=== PATIENT | female | born 1945 | race Caucasian/White ===

== ENCOUNTER → 2016-04-19 | Outpatient (CLI) | payer OTHER, MEDICARE | LOC: MMPC 10:00 | PROVIDERS: ATTEND Orthopaedic Surgery | DX: M17.12 Unilateral primary osteoarthritis, left knee (principal) | CPT/HCPCS: 20610 ×2; 99213; G0463; J0702; J7325 ==

== ENCOUNTER → 2016-05-31 | Outpatient (CLI) | payer OTHER, MEDICARE ==
--- NOTE | 2016-05-31 11:42 | DI ---
LEFT KNEE, 05/31/2016 10:42 AM: Clinical History: Arthritis of the left knee. Previous Exam: 10/24/2015. 3 views are submitted. Included are an AP weightbearing view and an AP supine film with valgus stress . There is no acute soft tissue, osseous, or joint abnormality. On the weight-bearing view, there is almost complete obliteration of the joint space. With stress, the joint space distance medially is no rmal indicating there is no laxity of the MCL. Reading: Degenerative arthritis of the medial compartment. Stress views show an intact MCL.
== END ==
LOC: ORTHO 11:09
PROVIDERS: ATTEND Orthopaedic Surgery
DX: M17.12 Unilateral primary osteoarthritis, left knee (principal)
CPT/HCPCS: 73562

== ENCOUNTER → 2016-06-07 | Outpatient (CLI) | payer OTHER, MEDICARE ==
--- NOTE | 2016-06-07 10:09 | EKG ---
[address] [address] Measurements Intervals [place] Rate: 75 P: 76 WI: 163 QRS: -10 QRSD: 91 T: 71 QT: 401 QTc: 430 Interpretive Statements SINUS RHYTHM INDETERMINATE AXIS ATYPICAL ECG No previous ECG available for comparison Electronically Signed On 06-07-16 18:13:35 MDT by Satnam Stovall [id number]
[2016-06-07 10:13] LABS: HEMATOCRIT 41.6 % (37.0-47.0); HEMOGLOBIN 13.6 g/dL (12.0-16.0); MEAN CORPUSCULAR HEMOGLOBIN 28.8 PG (27-31); MEAN CORPUSCULAR HGB CONC 32.7 g/dL (33-37); MEAN PLATELET VOLUME 8.8 FL (7.4-12.2); RED BLOOD COUNT 4.72 10^6/uL (4.20-5.40)
[2016-06-07 10:24] LABS: BILIRUBIN,URINE NEGATIVE (NEG); CLARITY,URINE CLEAR (CLEAR); COLOR,URINE YELLOW; GLUCOSE, URINE (UA) NEGATIVE (NEG); NITRATE,URINE NEGATIVE (NEG); OCCULT BLOOD,URINE NEGATIVE (NEG); PH,URINE 5.5 (5.0-8.5); PROTEIN,URINE NEGATIVE (NEG); UROBILINOGEN,URINE 0.2 mg/dL (0.2)
[2016-06-07 10:35] LABS: CALCIUM 9.3 mg/dL (8.7-10.7)
[2016-06-07 11:04] LABS: URINE SAMPLE TYPE VOIDED SPECIMEN
[2016-06-07 11:05] LABS: BACTERIA,URINE FEW; RBC,URINE 0-1 /hpf; SQUAMOUS EPITHELIAL CELL,UR FEW; WBC,URINE 20-40
== END ==
LOC: EKG 09:49
PROVIDERS: ATTEND Orthopaedic Surgery
DX: M17.12 Unilateral primary osteoarthritis, left knee (principal); N39.0 Urinary tract infection, site not specified; R82.99 Other abnormal findings in urine
CPT/HCPCS: 36415; 80048; 81001; 85027; 86850; 87088; 87641; 93005; 93010

== ENCOUNTER → 2016-07-05 | Outpatient (CLI) | payer OTHER, MEDICARE ==
[2016-07-05 12:42] LABS: BILIRUBIN,URINE NEGATIVE (NEG); COLOR,URINE YELLOW; GLUCOSE, URINE (UA) NEGATIVE (NEG); NITRATE,URINE NEGATIVE (NEG); OCCULT BLOOD,URINE NEGATIVE (NEG); PROTEIN,URINE NEGATIVE (NEG); UROBILINOGEN,URINE 0.2 mg/dL (0.2)
[2016-07-05 12:44] LABS: CLARITY,URINE SLIGHTLY CLOUDY (CLEAR); URINE SAMPLE TYPE CLEAN CATCH URINE
[2016-07-05 12:47] LABS: BACTERIA,URINE RARE; SQUAMOUS EPITHELIAL CELL,UR RARE
== END ==
LOC: LAB 11:14
PROVIDERS: ATTEND Orthopaedic Surgery
DX: M17.12 Unilateral primary osteoarthritis, left knee (principal)
CPT/HCPCS: 36415; 81001; 86850; 86900; 86901; 99213

== ENCOUNTER 2016-07-06 10:53 | Inpatient (IN) | payer OTHER, MEDICARE ==
[~2016-07-06 10:53] MED LIST: ATROPINE SULFATE 0.4 MG/1 ML VIAL IVP PRN; CLINDAMYCIN 900 MG IV ONE; Gentamicin Inj 40 MG/ML VIAL ONE; HYDROmorphone 2 MG/1 ML IVP PRN; LIDOCAINE W/ SODIUM BICARB 0.5 ML SYR ONE; Lactated Ringers 1,000 ML PRIMARY IV SCH; NORMAL SALINE 10 ML SYRINGE FLUSH IVP PRN; ONDANSETRON 4 MG/2 ML VIAL IVP PRN; Ondansetron ODT Tab 8 MG TAB PO PRN; Sodium Chloride 0.9% 100 ML IV ONE; TRANEXAMIC ACID 1,000 MG / 10 ML VIAL ONE; fentaNYL Inj 100 MCG/2 ML VIAL IVP PRN
[2016-07-06] MEDS ORDERED: BACITRACIN 50,000 UNIT VIAL IRRIG ONE (11:35)
[2016-07-06] MEDS ORDERED: Sodium Chloride 0.9% vial 60 ML ONE (11:35)
[2016-07-06] MEDS ORDERED: BUPivacaine Liposome/PF (Exparel) Inj 20ml vial INFIL ONE (11:35)
[2016-07-06] MEDS ORDERED: fentaNYL Inj 250 MCG/5 ML VIAL ONE (11:45)
[2016-07-06] MEDS ORDERED: MIDAZOLAM 5 MG/1 ML ONE (11:45)
[2016-07-06] MEDS ORDERED: DEXAMETHASONE SOD PHOSPHATE 4 MG/1 ML VIAL ONE (11:46)
[2016-07-06] MEDS ORDERED: Sodium Chloride 0.9% 2,000 ML ONE (11:56)
[2016-07-06] MEDS ORDERED: Sodium Chloride 0.9% 0 ML ONE (11:56)
[2016-07-06] MEDS ORDERED: Ketorolac Inj 30 MG, Morphine Inj 5 MG, BUPivacaine Inj 0.25% PF 150 MG SPLASH ONE ×3 (12:00)
[2016-07-06] MEDS ORDERED: Tranexamic Acid 3,000 MG in Sodium Chloride 0.9% 100 ML IRRIG ONE (12:00)
[2016-07-06] MEDS ORDERED: ROPIVACAINE HCL 7.5 MG/1 ML - 20 ML ONE (12:11)
[2016-07-06] MEDS ORDERED: BUPIVACAINE 0.5% W/EPI MPF -30 ML VIAL IV ONE (12:11)
[2016-07-06] MEDS ORDERED: LIDOCAINE W/ SODIUM BICARB 0.5 ML SYR ONE (12:20)
[2016-07-06] MEDS ORDERED: DIAZEPAM 10 MG/2 ML (5 MG/1 ML) CARPUJECT ONE (12:40)
--- NOTE | 2016-07-06 13:02 | EKG ---
[address] [address] Measurements Intervals [place] Rate: 108 P: 44 MS: 160 QRS: 122 QRSD: 112 T: 62 QT: 404 QTc: 467 Interpretive Statements SINUS TACHYCARDIA INDETERMINATE AXIS LEFT POSTERIOR FASCICULAR BLOCK [QRS AXIS > 109, INFERIOR Q] Possible INFERIOR MYOCARDIAL INFARCTION [40+ ms Q WAVE AND/OR ST/T ABNORMALITY IN II/aVF], PROBABLY OLD but borderline inferior Qs were present on previous study Compared to ECG 06/07/2016 09:58:26 Left posterior fascicular block now present Myocardial infarct finding now present Sinus rhythm no longer present Electronically Signed On 07-12-16 09:41:22 MDT by Eddie Mleo MD [id number]
[2016-07-06] MEDS ORDERED: NORMAL SALINE 10 ML SYRINGE FLUSH IVP PRN (13:44)
--- NOTE | 2016-07-06 13:59 | CRNA.PROGR ---
Anesthesia Note Anesthesia Progress Note: [address] Had discussed with pt anesthetic techniques including Femoral Nerve block, Sciatic Nerve Block, General anesthesia and regional anesthesia. She chose Sciatic nerve Block, with a Femoral nerve block and a Spinal anesthetic as primary technique. Fully monitored, turned onto Right side. Sedated with 2.5 mg Versed plus 100 mcgs Fentanyl. Performed Sciatic block with nerve stimulator technique with twitch down to 0.6 MA. Injected 10 ml of 0.5% Bupivicaine with epi 1:200k mixed with 10 ml of 0.7% Ropivicaine plain with 4 mg Dexmethasone in 3 ml increments. Had just finished injecting when increased heartrate noted 80's and then seizure activity began. Assumed vascular uptake. Called for help- gave 2.5 mg Versed and then assisted BVM ventilation. Gave intralipid 80 ml slow push. Got a 12 lead ECG and [facility]. No Ventricular ectopy noted. Stayed sinus tach and slowly came down after seizure activity stopped. Duration of seizure activity around 2 minutes. Gave 5 mg plus 5 mg of Diazepem to cover when Midazolam metabolized. Dr Pryor informed case canceled. Labs drawn, send out labs for Local anesthetic levels and metabolites. Her ventliation was assisted with BVM and oral airway until she was able to maintain drive on her own. ( Benzodiazepine and opiate) Blood pressures and Heart rate stayed satisfactory. Dr Wright consulted. Cameron Victor MS, CORRESPONDENCE REVIEW CLERK
[2016-07-06 14:01] LABS: CALCIUM 8.2 mg/dL (8.7-10.7); SERUM ALBUMIN 2.8 g/dL (3.5-4.8)
--- NOTE | 2016-07-06 14:06 | PDOC ---
History and Physical - History of Present Illness Date and Time of Service: 07/06/2016 2 PM Chief Complaint: Seizure shortly after sciatic nerve block today History of Present Illness: This is a 70 years old female with medical history significant only for history of osteoarthritis who came in today to have surgery on her knee and per my discussion with the nurse anesthesiologist he said he started by given the patient sedation with the 2.5 mg of Versed +100 MCG of fentanyl then he performed sciatic nerve block and injected 10 ml of 0.5 bupivacaine with epi mixed with 10 ml of ropivacaine with 4 mg dexamethasone in 3 mL increments. He just finished the injection when the patient heart rate was noticed to go up and then seizure activity began. He gave 2.5 mg of Versed and then began an assisted ventilation. He gave her also 10 milligram of diazepam after that. The hospitalist service and then were consulted. By time I came in to see the patient she was groggy but arousable, she denied significant medical history before and no previous seizures and no previous medication reactions. Apart from sleepiness she is denying symptoms currently. Past Medical History Medical History: 1. At one point in time they thought that she had multiple sclerosis but she said she went to a different neurologist in [place] and they told her she does not have it. 2. Chronic dizziness. This was attributed to inner ear problem and that seemed to be improved Surgical History: 1. Hysterectomy. 2. Shoulder surgery. 3. Cholecystectomy Pertinent Family History: She states that her father of a brain tumor, and her mother is still alive Past Social History: Does not smoke or drink. 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 She's been for over 47 years. Tobacco Use: Never Smoker Substance Use Type: None Alcohol Use: None Medication / Allergies Home Medications: Home Medications Medication Instructions Recorded Confirmed Type Oxycodone HCl/Acetaminophen 1 tab PO Q4-6H tab 07/01/16 07/06/16 History [Percocet 5-325 Mg Tablet] Allergies/Adverse Reactions: Allergies Allergy/AdvReac Type Severity Reaction Status Date / Time codeine Allergy Severe SHORTNESS Verified 07/06/16 11:21 OF BREATH Penicillins Allergy Severe Anaphylaxis Verified 07/06/16 11:21 beet sugar Allergy Unknown NOT Uncoded 04/18/17 11:21 APPLICABLE Review of Systems - Review of Systems ROS Unobtainable: Due to Mental Status Exam - Vitals Vital Signs: Vital Signs Height 5 ft 4 in Weight 170 lb - General Additional General Exam Details: Groggy but arousable - Head Head Exam: POSITIVE: Normal Inspection, Atraumatic - Eye Eye Exam: POSITIVE: Normal Appearance - ENT ENT Exam: POSITIVE: Normal Exam - Neck Neck Exam: POSITIVE: Normal Inspection - Respiratory Respiratory Exam: POSITIVE: Clear to Auscultation - Bilaterally - Cardiovascular Cardiovascular Exam: POSITIVE: RRR - GI/Abdominal GI/Abdominal Exam: POSITIVE: Normal Bowel Sounds, Non Tender, Non Distended, Soft - Rectal Rectal Exam: POSITIVE: Deferred - External Exam: POSITIVE: Deferred - Extremities Extremities Exam: POSITIVE: Normal Inspection - Back Back Exam: POSITIVE: Normal Inspection - Neurological Additional Neurological Exam Details: Gradually, arousable follow commands. Slow to respond though. Moving all extremities. - Psychiatric Psychiatric Exam: POSITIVE: Flat Affect Results - Labs CBC and BMP: 07/06/16 12:30 07/06/16 12:30 Assessment and Plan - Patient Problems (1) Seizure Current Visit: Yes Status: Acute Comment: I susspect this due to the medications the bupivacaine and ropivacaine , will admit her under observation, cardiac telemetry, ordered labs and will order a CT of her head. I did speak with the poison control suggested symptomatic treatment. Photo / Body Diagrams - Uploaded Photos Uploaded Photos:
[2016-07-06 14:10] LABS: BASOPHILS # (AUTO) 0.03 10*3/UL; BASOPHILS % (AUTO) 0.3 % (0-1); EOSINOPHILS # (AUTO) 0.14 10*3/UL; EOSINOPHILS % (AUTO) 1.5 % (0-8); HEMATOCRIT 34.3 % (37.0-47.0); HEMOGLOBIN 11.3 g/dL (12.0-16.0); LYMPHOCYTES # (AUTO) 4.54 10*3/uL; MEAN CORPUSCULAR HEMOGLOBIN 30.8 PG (27-31); MEAN CORPUSCULAR HGB CONC 32.9 g/dL (33-37); MEAN CORPUSCULAR VOLUME 93.5 FL (81-99); MEAN PLATELET VOLUME 9.4 FL (7.4-12.2); MONOCYTES # (AUTO) 0.78 10*3/UL (0.3-0.8); MONOCYTES % (AUTO) 8.5 % (5-15); NEUTROPHILS % (AUTO) 40.2 % (50-80); RED BLOOD COUNT 3.67 10^6/uL (4.20-5.40)
[2016-07-06] MEDS ORDERED: Magnesium Sulfate 2gm (Premix) 2 GM in Premix 1 BAG IV ONE (14:14)
[2016-07-06 14:15] LABS: PLATELET MORPHOLOGY COMMENT NORMAL MORPHOLOGY (NORM); RBC MORPHOLOGY COMMENT NORMAL MORPHOLOGY (NORM); WBC MORPHOLOGY COMMENT NORMAL MORPHOLOGY (NORM)
--- NOTE | 2016-07-06 14:20 | DI ---
CT HEAD SCAN WITHOUT IV CONTRAST, 07/06/2016 1:43 PM : Clinical History: Seizures. Previous Exam: 03/27/2013. Scans are obtained from the foramen magnum to the vertex without IV contrast. The 4th, 3rd, and lateral ventricles are of normal size, shape, position, and contour for the patient 's age. 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 There is no evidence of an acute intracranial hemorrhagic focus. There is no acute bland infarct. There ar e old lacunar infarcts in the body of the right caudate nucleus and near the left anterior limb of th e internal capsule. These were present on the previous study and have not changed. There are multiple punctate periventricular white matter lucencies bilaterally that extend into the watershed territory , consistent with small vessel ischemic disease. This amount of ischemic disease is appropriate for t he patient's age. There is mild to moderate cerebellar and cerebral atrophy. There are no extracerebr al mantles or shift of the midline structures. Bone window evaluation is normal. The paranasal sinuse s are normal. READIN. There is no acute intracranial hemorrhagic focus or evidence of an acute bland infarct. There are old lacunar infarcts of the body of the right caudate nucleus and in the anterior limb of the left i nternal capsule. 2. Small vessel ischemic disease. 3. Mild to moderate cerebellar and cerebral atrophy.
[2016-07-06] MEDS ORDERED: FAT EMULSIONS 20% 250 ML IV ONE (14:30)
[2016-07-06] MEDS: Sodium Chloride 0.9% 1,000 ML PRIMARY IV SCH ×2 (15:45→23:11)
[2016-07-06] MEDS ORDERED: oxyCODONE-ACETAMINOPHEN 5-325 TAB PO PRN (17:09)
[2016-07-06 20:37] VITALS: RESP 18
[2016-07-07] MEDS: Sodium Chloride 0.9% 1,000 ML PRIMARY IV SCH (05:45)
[2016-07-07 06:58] VITALS: TEMP 98.2
[2016-07-07 07:54] LABS: CALCIUM 8.6 mg/dL (8.7-10.7); MAGNESIUM 2.2 mg/dL (1.6-2.4)
--- NOTE | 2016-07-07 08:29 | PDOC(PROG) ---
Date and Time of Service: 07/07/2016 8:28 AM Interval History: Subjective Patient feels better today, she is denying new symptoms. Wants to go home Objective : Data - Labs CBC and BMP: 07/06/16 12:30 07/07/16 06:24 Labs - Last 24 Hours: Laboratory Results 07/06/16 07/07/16 Range/Units 12:30 06:24 WBC 9.21 (4.8-10.8) 10^3/uL RBC 3.67 L (4.20-5.40) 10^6/uL Hgb 11.3 L (12.0-16.0) g/dL Hct 34.3 L (37.0-47.0) % MCV 93.5 (81-99) FL MCH 30.8 (27-31) PG MCHC 32.9 L (33-37) g/dL RDW Std Deviation 45.0 (39-50) fL RDW Coeff of Jaime 13.6 (11.5-14.5) % Plt Count 187 (140-350) 10*3/uL MPV 9.4 (7.4-12.2) FL Immature Gran % (Auto) 0.2 (0-5) % Neut % (Auto) 40.2 L (50-80) % Lymph % (Auto) 49.3 (10-50) % Mineral % (Auto) 8.5 (5-15) % Eos % (Auto) 1.5 (0-8) % Baso % (Auto) 0.3 (0-1) % Immature Gran # (Auto) 0.02 10*3/UL Neut # (Auto) 3.70 10*3/UL Lymph # (Auto) 4.54 10*3/uL Mineral # (Auto) 0.78 (0.3-0.8) 10*3/UL Eos # (Auto) 0.14 10*3/UL Baso # (Auto) 0.03 10*3/UL WBC Morphology Comment Normal morphology (NORM) Plt Morphology Comment Normal morphology (NORM) RBC Morph Comment Normal morphology (NORM) Sodium 139 138 (135-145) meq/L Potassium 3.7 L 4.2 (3.8-5.2) meq/L Chloride 106 108 (98-112) meq/L Carbon Dioxide 12 L 23 (23-33) meq/L Anion Gap 21 H 7 (5-20) BUN 14 16 (7-22) mg/dL Creatinine 0.7 0.8 (0.50-1.20) mg/dL Estimated GFR (>60 ml/min/1.73m(2)) BUN/Creatinine Ratio 20.00 20.00 (6-20) Glucose 97 102 (78-110) mg/dL Calculated Osmolality 288.0 286.0 (267-292) mOsm/kg Calcium 8.2 L 8.6 L (8.7-10.7) mg/dL Magnesium 1.5 L 2.2 (1.6-2.4) mg/dL Total Bilirubin 0.6 (0.3-1.2) mg/dL AST 56 H (8-39) IU/L ALT 24 (9-52) IU/L Alkaline Phosphatase 56 (38-126) IU/L Troponin I < 0.012 (< 0.040) ng/mL Total Protein 5.1 L (6.1-8.0) g/dL Albumin 2.8 L (3.5-4.8) g/dL Globulin 2.3 L (2.50-4.10) g/dL Albumin/Globulin Ratio 1.20 L (1.3-2.0) mg/g Objective : Exam - General General Appearance: No Acute Distress, Cooperative - Head Head Exam: Normal Inspection, Atraumatic - Eye Eye Exam: Normal Appearance - ENT ENT Exam: Normal Exam - Neck Neck Exam: Normal Inspection - Respiratory Respiratory Exam: Clear to Auscultation - Bilaterally - Cardiovascular Cardiovascular Exam: RRR - GI/Abdominal GI/Abdominal Exam: Normal Bowel Sounds, Non Tender, Non Distended, Soft - Rectal Rectal Exam: Deferred - External Exam: Deferred - Extremities Extremities Exam: Normal Inspection - Back Back Exam: Normal Inspection - Neurological Neurological Exam: Alert, Oriented x 3, CN II-XII Intact, Moves All Extremities Equally - Psychiatric Psychiatric Exam: Normal Affect Assessment and Plan - Patient Problems (1) Seizure Status: Acute Comment: Likely secondary to local anesthetic medication, her labs improved. I told her that I want her to walk around if she is okay we'll send her home. Photo / Body Diagrams - Uploaded Photos Uploaded Photos:
--- NOTE | 2016-07-07 09:20 | ORTHO.PROG ---
Last Taken Vital Signs: Vital Signs - Last Taken Temperature 98.2 F 07/07/16 06:57 Pulse Rate 85 07/07/16 07:00 Respiratory Rate 18 07/07/16 07:00 Blood Pressure 118/64 07/07/16 06:57 Pulse Ox 92 07/07/16 06:57 Subjective: Outpatient feeling very tired but otherwise well Objective: Examination shows that she has full motor of the upper and lower extremities with normal motor and sensory exam. Patient seems very tired and is able to answer all questions. Patient with a CT scan which showed no evidence of acute process the cerebrum. Assessment: Patient initially to have unicompartmental knee replacement however sustained a seizure while undergoing sciatic nerve block. Plan: Patient is being evaluated by the hospitalist and so far seems to be improving nicely with no clear etiology at least from CT standpoint for the seizure may be secondary to rapid absorption of the Marcaine/bupivacaine. We'll see how she progresses today with therapy and activities possible discharge home later today. We'll look at scheduling her in the near future for the unicompartmental knee replacement.
--- NOTE | 2016-07-07 09:26 | CRNA.PROGR ---
Anesthesia Note Anesthesia Progress Note: Up and ambulating with member of pt care team. Cheerful. Oriented. Immediately brought up she has rescheduled knee surgery for nest Tuesday. " No Blocks" completely understandable. See Hospitalists note. Leola Victor MS, MORNING NANNY
--- NOTE | 2016-07-07 10:20 | ORTHO.PROG ---
Last Taken Vital Signs: Vital Signs - Last Taken Temperature 98.2 F 07/07/16 06:57 Pulse Rate 85 07/07/16 07:00 Respiratory Rate 18 07/07/16 07:00 Blood Pressure 118/64 07/07/16 06:57 Pulse Ox 92 07/07/16 06:57 Subjective: Patient notes she is very tired this morning and decreased energy. Objective: Patient able to mobilize from bed to chair with no problem. Patient had a CT scan last PM which showed no evidence of active stroke masses etc. or clear reason for a lower seizure threshold. Assessment: A patient with seizure during preparation for unicompartmental knee replacement Plan: Patient is being evaluated by the hospitalist we'll see about possible discharge later today.
--- NOTE | 2016-07-07 12:07 | DCSUMMARY ---
Hospitalization Summary Admit Date: 07/06/16 Discharge Date: 07/07/16 Hospital Course: Discharge diagnosis 1. Seizure likely secondary to a local anesthetic injection 2. History of osteoarthritis 3. Old lacunar infarct on the CT scan 4. Hypomagnesemia Hospital course This is a 70 years old female with medical history significant only for history of osteoarthritis who came into the hospital to have surgery on her knee and per my discussion with the nurse anesthesiologist he said he started by giving her sedation with 2.5 mg of Versed and 100 MCG of fentanyl then he performed a nerve block and injected 10 ml of 0.5 bupivacaine with epi mixed with 10 ml of ropivacaine with 4 mg dexamethasone at 3 mm increment. He just finished injection and they noticed the patient heart rate went up and then seizure activity began. He gave her 2.5 mg of Versed and then began assisted ventilation. He gave her additional 10 mg of diazepam after that. The hospitalist service were consulted. By the time I came to see her she was groggy but arousable. There was no history of seizures before her exam was nonfocal she was groggy though. We did labs test which showed hypomagnesemia, she did show increased anion gap acidosis secondary to the seizure, we did a CT of the head which showed old lacunar infarct. Patient said she was investigated for possible MS more than 2- 3 years ago but the she does not have MS. We admitted the patient and gave her some fluid and watched her there was no additional seizure activity. Lab test for the level of local anesthetic was sent. Next day she was doing well her lab test improved she walked around did well we thought that she could be discharged home and follow-up with her PCP as an outpatient. Regarding the surgery the plan is for her to have general anesthetic. But per the nurse anesthesiologist this will depend on the level of the medication that was sent if the medication is not detected he may want her to see the neurologist. They will make that decision. they will let the patient know. Patient had a minimally abnormal UA there was 4-6 white cells no blood trace leukocyte esterase however she did not have any symptoms and I can see that back in May she had a higher level of white count and she was not treated in the growth indicated contamination and since currently she does not have symptoms we elected not to give her any additional antibiotics. Laboratory Results 07/06/16 07/07/16 Range/Units 12:30 06:24 WBC 9.21 (4.8-10.8) 10^3/uL RBC 3.67 L (4.20-5.40) 10^6/uL Hgb 11.3 L (12.0-16.0) g/dL Hct 34.3 L (37.0-47.0) % MCV 93.5 (81-99) FL MCH 30.8 (27-31) PG MCHC 32.9 L (33-37) g/dL RDW Std Deviation 45.0 (39-50) fL RDW Coeff of Jaime 13.6 (11.5-14.5) % Plt Count 187 (140-350) 10*3/uL MPV 9.4 (7.4-12.2) FL Immature Gran % (Auto) 0.2 (0-5) % Neut % (Auto) 40.2 L (50-80) % Lymph % (Auto) 49.3 (10-50) % [place] % (Auto) 8.5 (5-15) % Eos % (Auto) 1.5 (0-8) % Baso % (Auto) 0.3 (0-1) % Immature Gran # (Auto) 0.02 10*3/UL Neut # (Auto) 3.70 10*3/UL Lymph # (Auto) 4.54 10*3/uL [place] # (Auto) 0.78 (0.3-0.8) 10*3/UL Eos # (Auto) 0.14 10*3/UL Baso # (Auto) 0.03 10*3/UL WBC Morphology Comment Normal morphology (NORM) Plt Morphology Comment Normal morphology (NORM) RBC Morph Comment Normal morphology (NORM) Sodium 139 138 (135-145) meq/L Potassium 3.7 L 4.2 (3.8-5.2) meq/L Chloride 106 108 (98-112) meq/L Carbon Dioxide 12 L 23 (23-33) meq/L Anion Gap 21 H 7 (5-20) BUN 14 16 (7-22) mg/dL Creatinine 0.7 0.8 (0.50-1.20) mg/dL Estimated GFR (>60 ml/min/1.73m(2)) BUN/Creatinine Ratio 20.00 20.00 (6-20) Glucose 97 102 (78-110) mg/dL Calculated Osmolality 288.0 286.0 (267-292) mOsm/kg Calcium 8.2 L 8.6 L (8.7-10.7) mg/dL Magnesium 1.5 L 2.2 (1.6-2.4) mg/dL Total Bilirubin 0.6 (0.3-1.2) mg/dL AST 56 H (8-39) IU/L ALT 24 (9-52) IU/L Alkaline Phosphatase 56 (38-126) IU/L Troponin I < 0.012 (< 0.040) ng/mL Total Protein 5.1 L (6.1-8.0) g/dL Albumin 2.8 L (3.5-4.8) g/dL Globulin 2.3 L (2.50-4.10) g/dL Albumin/Globulin Ratio 1.20 L (1.3-2.0) mg/g Discharge instruction Diet regular Activity as started Medications Home Medications Medication Instructions Recorded Confirmed Type Oxycodone HCl/Acetaminophen 1 tab PO Q4-6H tab 07/01/16 07/06/16 History [Percocet 5-325 mg Tablet] Follow-up with her PCP in 1-2 weeks, Dr. Pryor as scheduled Condition at discharge was stable discharge Exam - Vitals Vital Signs: Vital Signs Temperature 98.2 F Temperature Source Temporal Artery Scan Pulse Rate [Pulse Oximeter] 85 Pulse Rate 70 Respiratory Rate 18 Blood Pressure [Right Arm] 118/64 Blood Pressure [Right Radial 111/72 Artery] Blood Pressure 141/95 Pulse Ox 92 Oxygen Flow Rate 1 Oxygen Delivery Method Room Air Height 5 ft 4 in Weight 170 lb Patient Problems - Patient Problem List (1) Seizure Status: Acute
== END 2016-07-07 10:09 | disposition home or self-care (01) | DRG 101 ==
LOC: OPS 10:53 → MED/SURG 14:12
PROVIDERS: ADMIT Orthopaedic Surgery; ATTEND Orthopaedic Surgery
DX: R56.9 Unspecified convulsions (principal); T41.3X5A Adverse effect of local anesthetics, initial encounter; Y92.234 Operating room of hospital as the place of occurrence of the external cause; M17.12 Unilateral primary osteoarthritis, left knee; E83.42 Hypomagnesemia; Z53.09 Procedure and treatment not carried out because of other contraindication
CPT/HCPCS: 36415; 70450; 80048; 80053; 83735; 84484; 85025; 93005; 93010; 94150; 94761; A4216; J1100; J1580; J1885; J2250; J2270; J3010; J3360; J3475; J3490; J7030; J7040; J7050; S0020

== ENCOUNTER → 2016-07-15 | Outpatient (CLI) | payer OTHER, MEDICARE ==
[2016-07-15 11:15] LABS: HEMATOCRIT 42.6 % (37.0-47.0); MEAN CORPUSCULAR HEMOGLOBIN 29.2 PG (27-31); MEAN CORPUSCULAR HGB CONC 32.9 g/dL (33-37); MEAN CORPUSCULAR VOLUME 88.8 FL (81-99); MEAN PLATELET VOLUME 8.6 FL (7.4-12.2); RED BLOOD COUNT 4.8 10^6/uL (4.20-5.40)
[2016-07-15 11:22] LABS: CALCIUM 9.6 mg/dL (8.7-10.7)
[2016-07-15 11:23] LABS: BILIRUBIN,URINE NEGATIVE (NEG); COLOR,URINE YELLOW; GLUCOSE, URINE (UA) NEGATIVE (NEG); NITRATE,URINE NEGATIVE (NEG); OCCULT BLOOD,URINE NEGATIVE (NEG); PROTEIN,URINE NEGATIVE (NEG); UROBILINOGEN,URINE 0.2 mg/dL (0.2)
[2016-07-15 11:38] LABS: CLARITY,URINE SLIGHTLY CLOUDY (CLEAR)
[2016-07-15 11:40] LABS: BACTERIA,URINE FEW; RBC,URINE RARE /hpf; SQUAMOUS EPITHELIAL CELL,UR RARE; URINE SAMPLE TYPE CLEAN CATCH URINE
== END ==
LOC: LAB 10:54
PROVIDERS: ATTEND Orthopaedic Surgery
DX: M17.12 Unilateral primary osteoarthritis, left knee (principal); R55 Syncope and collapse
CPT/HCPCS: 36415; 80048; 81001; 83735; 85027; 87088

== ENCOUNTER 2016-07-23 09:56 | Inpatient (IN) | payer OTHER, MEDICARE ==
[2016-07-23] MEDS ORDERED: LIDOCAINE W/ SODIUM BICARB 0.5 ML SYR ONE (10:03)
[2016-07-23] MEDS ORDERED: Lactated Ringers 1,000 ML PRIMARY IV ONE (10:03)
[2016-07-23] MEDS ORDERED: ceFAZolin Inj 2gm (Premix) 0 ML IV ONE (10:03)
[2016-07-23] MEDS ORDERED: Clindamycin 900mg (Premix) 50 ML IV ONE (10:11)
[2016-07-23 11:17] LABS: BILIRUBIN,URINE NEGATIVE (NEG); COLOR,URINE YELLOW; GLUCOSE, URINE (UA) NEGATIVE (NEG); NITRATE,URINE NEGATIVE (NEG); OCCULT BLOOD,URINE NEGATIVE (NEG); PH,URINE 5.5 (5.0-8.5); PROTEIN,URINE NEGATIVE (NEG); UROBILINOGEN,URINE 0.2 EU/dL (0.2)
[2016-07-23 11:20] LABS: CLARITY,URINE CLEAR (CLEAR); URINE SAMPLE TYPE CATH SPECIMEN
[2016-07-23] MEDS ORDERED: DEXAMETHASONE SOD PHOSPHATE 4 MG/1 ML VIAL ONE (12:18)
[2016-07-23] MEDS ORDERED: ONDANSETRON 4 MG/2 ML VIAL ONE (12:18)
[2016-07-23] MEDS ORDERED: Sodium Chloride 0.9% 0 ML ONE (12:46)
[2016-07-23] MEDS ORDERED: Sodium Chloride 0.9% 500 ML ONE (12:46)
[2016-07-23] MEDS ORDERED: TRANEXAMIC ACID 1,000 MG / 10 ML VIAL ONE ×2 (12:53→12:54)
[2016-07-23] MEDS ORDERED: Sodium Chloride 0.9% 200 ML IV ONE (12:54)
[2016-07-23] MEDS ORDERED: Sodium Chloride 0.9% vial 20 ML ONE ×2 (13:05→13:17)
[2016-07-23] MEDS ORDERED: BACITRACIN 50,000 UNIT VIAL IRRIG ONE (13:05)
[2016-07-23] MEDS ORDERED: BUPivacaine Liposome/PF (Exparel) Inj 20ml vial INFIL ONE (13:06)
[2016-07-23] MEDS ORDERED: MIDAZOLAM 5 MG/1 ML ONE (13:12)
[2016-07-23] MEDS ORDERED: fentaNYL Inj 250 MCG/5 ML VIAL ONE (13:13)
[2016-07-23] MEDS ORDERED: LIDOCAINE MPF 2% - 5 ML (20 MG/1 ML) ONE (13:16)
[2016-07-23] MEDS ORDERED: REMIFENTANIL 1 MG/1 ML IV ONE ×2 (13:17→14:54)
[2016-07-23] MEDS ORDERED: ePHEDrine Inj 50 MG/ML AMP ONE (13:48)
[2016-07-23] MEDS ORDERED: Ondansetron ODT Tab 8 MG TAB PO PRN ×2 (13:55→17:41)
[2016-07-23] MEDS ORDERED: fentaNYL Inj 100 MCG/2 ML VIAL IVP PRN (13:55)
[2016-07-23] MEDS ORDERED: ONDANSETRON 4 MG/2 ML VIAL IVP PRN ×2 (13:55→17:41)
[2016-07-23] MEDS ORDERED: KETOROLAC 15 MG/1 ML VIAL IVP PRN (13:55)
[2016-07-23] MEDS ORDERED: ATROPINE SULFATE 0.4 MG/1 ML VIAL IVP PRN (13:55)
[2016-07-23] MEDS ORDERED: NORMAL SALINE 10 ML SYRINGE FLUSH IVP PRN ×2 (13:55→17:41)
[2016-07-23] MEDS ORDERED: Acetaminophen 1000mg Inj 1,000 MG in Premix 1 BAG IV ONE (13:55)
[2016-07-23] MEDS ORDERED: Prochlorperazine Edisylate Inj 10mg/2ml vial IVP PRN (13:55)
[2016-07-23] MEDS ORDERED: Lactated Ringers 1,000 ML PRIMARY IV SCH (14:00)
[2016-07-23] MEDS ORDERED: DEXAMETHASONE PF 10 MG/1 ML VIAL ONE (15:20)
[2016-07-23] MEDS ORDERED: KETOROLAC 30 MG/1 ML VIAL ONE (15:55)
[2016-07-23] MEDS: HYDROmorphone 2 MG/1 ML IVP PRN ×2 (16:35→16:47)
[2016-07-23] MEDS ORDERED: BISACODYL 10 MG SUPPOSITORY RECTAL PRN (17:41)
[2016-07-23] MEDS ORDERED: MAG HYDROX/AL HYDROX/SIMETH 30 ML SUSP PO PRN (17:41)
[2016-07-23] MEDS ORDERED: CALCIUM CARBONATE 500 MG (TUMS) CHEWABLE TABLET PO PRN (17:41)
[2016-07-23] MEDS ORDERED: NALOXONE 0.4 MG/1 ML VIAL IVP PRN ×2 (17:41→18:45)
[2016-07-23] MEDS ORDERED: ACETAMINOPHEN 325 MG TABLET PO PRN (17:41)
[2016-07-23] MEDS ORDERED: IBUPROFEN 400 MG TABLET PO PRN (17:41)
[2016-07-23] MEDS ORDERED: diphenhydrAMINE 25 MG CAPSULE PO PRN (17:41)
[2016-07-23] MEDS: Lactated Ringers 1,000 ML PRIMARY IV SCH (17:50)
[2016-07-23] MEDS ORDERED: Clindamycin 900mg (Premix) 900 MG in Dextrose 1 BAG IV SCH (18:00)
[2016-07-23] MEDS ORDERED: HYDROmorphone/PF/PCA 9 MG/30 ML IV SCH (18:45)
[2016-07-23] MEDS: DOCUSATE 100 MG CAPSULE PO SCH (20:17)
[2016-07-23] MEDS: Clindamycin 900mg (Premix) 900 MG in Dextrose 1 BAG IV SCH (20:17)
[2016-07-23] MEDS ORDERED: ENOXAPARIN SODIUM 30 MG/0.3 ML SYRINGE SUBCUT SCH (21:00)
--- NOTE | 2016-07-23 22:00 | ORTHO.PROG ---
Last Taken Vital Signs: Vital Signs - Last Taken Temperature 98.4 F 07/23/16 20:00 Pulse Rate 108 H 07/23/16 20:00 Respiratory Rate 16 07/23/16 21:00 Blood Pressure 157/7 07/23/16 20:00 Pulse Ox 97 07/23/16 20:00 Subjective: Patient having a lot of nausea and has reasonable pain control. She states she does not tolerate pain medication well. She's been taking Zofran. Objective: Examination shows that the patient has good motor of the foot and ankle shows normal sensory exam. Her dressing is in place and has no bleeding or any other changes. Palpation with good motion foot and ankle with no pain and discomfort. Patient with good pulses brisk refill. Intake and Output - 8hrs 07/22/16 07/23/16 07/23/16 07/23/16 21:59 05:59 13:59 21:59 Intake: IV 2300 600 Intake Oral Amount 120 Output: Output, Urinary Catheter 250 Amount Output, Urine Amount 580 Output, Estimated Blood 250 Loss Amount Other: Weight 77.111 kg 77.111 kg Vital Signs (24 hrs) Temp Pulse Pulse Resp Resp BP BP 07/23/16 21:00 16 07/23/16 20:00 98.4 F 108 H 20 157/7 07/23/16 19:54 18 07/23/16 19:00 97.7 F 99 18 135/81 07/23/16 18:37 97.2 F 99 16 138/74 07/23/16 18:04 97 F 98 16 136/74 07/23/16 17:45 97 F 99 16 137/77 07/23/16 17:30 97 F 94 16 144/78 07/23/16 17:15 97 F 96 14 142/87 07/23/16 17:10 97.7 F 89 16 144/76 07/23/16 17:05 97.5 F 95 15 146/80 07/23/16 16:55 97.5 F 90 14 143/73 07/23/16 16:45 97.6 F 97 13 145/59 07/23/16 16:40 98.0 F 95 14 147/93 07/23/16 16:35 98.0 F 94 15 156/77 07/23/16 16:30 98.0 F 100 16 146/80 07/23/16 16:25 98.0 F 98 16 146/87 07/23/16 10:50 97.4 F 67 18 113/77 Pulse Ox 07/23/16 21:00 07/23/16 20:00 97 07/23/16 19:54 07/23/16 19:00 96 07/23/16 18:37 94 07/23/16 18:04 94 07/23/16 17:45 93 07/23/16 17:30 93 07/23/16 17:15 95 07/23/16 17:10 07/23/16 17:05 07/23/16 16:55 07/23/16 16:45 07/23/16 16:40 07/23/16 16:35 07/23/16 16:30 07/23/16 16:25 07/23/16 10:50 Assessment: Left unicompartmental knee replacement Plan: We discussed the patient's current condition and clinical findings as it pertains to the current situation. Surgical versus nonsurgical options risks and benefits were discussed and reviewed. Options moving forward include but are not limited to continued choice to live with their current condition; evaluate their current condition further with imaging studies and/or diagnostic testing, etc.; treat problem/problems with surgical versus nonsurgical methods. The patient demonstrates a clear understanding of our discussion. All questions were answered. We will hold her Lovenox and she had a dose approximately approximately 5 hours out from cessation of her surgery. We'll watch her closely for bleeding hold her Lovenox dose for tomorrow a.m. We will switch her antinausea medication from Zofran to Compazine and see if this is more helpful to her.
[2016-07-23] MEDS: Prochlorperazine Edisylate Inj 10mg/2ml vial IVP PRN (22:21)
[2016-07-24] MEDS: Clindamycin 900mg (Premix) 900 MG in Dextrose 1 BAG IV SCH ×2 (01:26→07:59)
[2016-07-24] MEDS: Prochlorperazine Edisylate Inj 10mg/2ml vial IVP PRN (03:17)
[2016-07-24] MEDS: Lactated Ringers 1,000 ML PRIMARY IV SCH (04:46)
[2016-07-24 06:12] LABS: HEMATOCRIT 33.7 % (37.0-47.0); HEMOGLOBIN 10.7 g/dL (12.0-16.0); MEAN CORPUSCULAR HEMOGLOBIN 28.8 PG (27-31); MEAN CORPUSCULAR HGB CONC 31.8 g/dL (33-37); MEAN CORPUSCULAR VOLUME 90.6 FL (81-99); MEAN PLATELET VOLUME 9.2 FL (7.4-12.2); RED BLOOD COUNT 3.72 10^6/uL (4.20-5.40)
[2016-07-24 06:33] LABS: CALCIUM 8.4 mg/dL (8.7-10.7)
[2016-07-24] MEDS ORDERED: HYDROmorphone 2 MG/1 ML IVP PRN (06:59)
--- NOTE | 2016-07-24 07:19 | ORTHO.PROG ---
Last Taken Vital Signs: Vital Signs - Last Taken Temperature 97.7 F 07/24/16 04:47 Pulse Rate 80 07/24/16 04:47 Respiratory Rate 18 07/24/16 04:47 Blood Pressure 125/66 07/24/16 04:47 Pulse Ox 95 07/24/16 04:47 Subjective: Patient feels better this morning, no nausea Objective: Left leg dressing is clean and dry motor and sensory exam of the foot and ankle is normal. Patient and knee immobilizer dressing is dry. Intake and Output - 8hrs 07/23/16 07/23/16 07/24/16 07/24/16 13:59 21:59 05:59 13:59 Intake: IV 2300 600 865 Intake Oral Amount 120 600 Output: Output, Urinary Catheter 250 500 Amount Output, Urine Amount 580 Output, Emesis 400 Output, Estimated Blood 250 Loss Amount Other: Weight 77.111 kg 77.111 kg Laboratory Results 07/23/16 07/24/16 Range/Units 11:16 05:30 WBC 6.21 (4.8-10.8) 10^3/uL RBC 3.72 L (4.20-5.40) 10^6/uL Hgb 10.7 L (12.0-16.0) g/dL Hct 33.7 L (37.0-47.0) % MCV 90.6 (81-99) FL MCH 28.8 (27-31) PG MCHC 31.8 L (33-37) g/dL RDW Std Deviation 43.4 (39-50) fL RDW Coeff of Jaime 13.6 (11.5-14.5) % Plt Count 183 (140-350) 10*3/uL MPV 9.2 (7.4-12.2) FL Sodium 134 L (135-145) meq/L Potassium 4.8 (3.8-5.2) meq/L Chloride 102 (98-112) meq/L Carbon Dioxide 23 (23-33) meq/L Anion Gap 9 (5-20) BUN 19 (7-22) mg/dL Creatinine 1.0 (0.50-1.20) mg/dL Estimated GFR (>60 ml/min/1.73m(2)) BUN/Creatinine Ratio 19.00 (6-20) Glucose 136 H (78-110) mg/dL Calculated Osmolality 281.0 (267-292) mOsm/kg Calcium 8.4 L (8.7-10.7) mg/dL Ur Collection Type Cath specimen Urine Color Yellow Urine Clarity Clear (CLEAR) Urine pH 5.5 (5.0-8.5) Ur Specific [place] 1.005 (1.005-1.030) Urine Protein Negative (NEG) mg/dl Urine Glucose (UA) Negative (NEG) mg/dL Urine Ketones Negative (NEG) Urine Occult Blood Negative (NEG) Urine Nitrate Negative (NEG) Urine Bilirubin Negative (NEG) Urine Urobilinogen 0.2 (0.2) EU/dL Ur Leukocyte Esterase Negative (NEG) Blood Type O POSITIVE Antibody Screen Negative Assessment: Left unicompartmental knee replacement medially doing well, nausea. Plan: (Physical therapy and occupational therapy today. We will try switching her to oral pain medications at the current time. We will hold her Lovenox dose this morning since she did get a dose very close to the surgical process and symmetric there is no bleeding process before proceeding with anticoagulation.
[2016-07-24] MEDS: oxyCODONE/APAP 7.5/325 Tab 1 TAB TAB PO PRN ×3 (07:35→20:29)
[2016-07-24] MEDS: Prochlorperazine Tab 10 MG TAB PO PRN ×2 (07:35→15:24)
--- NOTE | 2016-07-24 09:24 | CRNA.PROGR ---
Anesthesia Note Anesthesia Progress Note: Post OP Anesthesia Note Pt is resting in bed, awake alert and oriented, she has been up with assistance , tolerating a regular diet, and states that her pain is well under control. She denies any residual problems with the general anesthetic. Current VS are stable. Vital Signs (Last 8 hours) Temp Pulse Resp Resp BP Pulse Ox 07/24/16 04:47 97.7 F 80 18 125/66 95 07/24/16 04:46 18 07/24/16 03:59 93 07/24/16 03:00 20 95
[2016-07-24] MEDS: DOCUSATE 100 MG CAPSULE PO SCH ×2 (10:42→20:29)
--- NOTE | 2016-07-24 14:34 | CONSULT ---
Consult Note - Consult Consult Date: 07/24/16 Reason for Consult: PostOp Consulation : Ortho Requesting Physician: Konstantin Primary Care Provider: TOM SCHREIBER - History of Present Illness History of Present Illness: This very nice 70-year-old female who underwent left a uni-knee replacement hospitalist services were consult that the for uncontrollable nausea. Patient is not doing much better we have recommended Compazine instead of the Zofran which worked really well patient denies chest pain nausea or vomiting Past Medical History Medical History: 1. At one point in time they thought that she had multiple sclerosis but she said she went to a different neurologist in [place] and they told her she does not have it. 2. Chronic dizziness. This was attributed to inner ear problem and that seemed to be improved Surgical History: 1. Hysterectomy. 2. Shoulder surgery. 3. Cholecystectomy Pertinent Family History: She states that her father of a brain tumor, and her mother is still alive Past Social History: Does not smoke or drink. 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 She's been for over 47 years. Tobacco Use: Never Smoker Substance Use Type: None Review of Systems - Review of Systems All Systems: Reviewed & No Additional Complaints Except as Stated - Respiratory Respiratory: DENIES: Negative System Review, Cough, Sputum, Dyspnea At Rest, Dyspnea with Exertion, Pleuritic Pain, Hemoptysis, Wheezing, Other, See HPI - Cardiovascular Cardiovascular: DENIES: Negative System Review, Chest Pain, Edema, Syncope, Palpitations, Orthopnea, Paroxysmal Nocturnal Dyspnea, Other, See HPI - Gastrointestinal Gastrointestinal / Abdominal: REPORTS: Nausea. DENIES: Vomiting - Genitourinary Genitourinary: DENIES: Negative System Review, Pain, Burning, Hematuria, Incontinence, Urgency, Hesitant Stream, Decreased Stream, Nocutria, Discharge, Sexual Dyfunction, Other, See HPI Medication / Allergies Home Medications: Home Medications Medication Instructions Recorded Confirmed Type Oxycodone HCl/Acetaminophen 1 tab PO Q4-6H tab 07/01/16 07/23/16 History [Percocet 5-325 mg Tablet] Sulfamethoxazole/Trimethoprim 1 tab PO BID #16 tab 07/15/16 07/23/16 Clinic [Bactrim Ds Tablet] Allergies/Adverse Reactions: Allergies Allergy/AdvReac Type Severity Reaction Status Date / Time codeine Allergy Severe SHORTNESS Verified 07/23/16 10:25 OF BREATH Penicillins Allergy Severe Anaphylaxis Verified 07/23/16 10:25 beet sugar Allergy Unknown NOT Uncoded 07/23/16 10:25 APPLICABLE Exam - Vitals Vital Signs: Vital Signs Temperature 97.4 F Temperature Source Temporal Artery Scan Pulse Rate [Pulse Oximeter] 81 Pulse Rate 89 Respiratory Rate [left knee] 18 Respiratory Rate 18 Blood Pressure [Left Arm] 126/85 Blood Pressure 144/76 Pulse Ox 91 Oxygen Flow Rate [left knee] 1 Oxygen Flow Rate 1 Oxygen Flow Rate 3 Oxygen Delivery Method Room Air Height 5 ft 4 in Weight 83.915 kg - General General Appearance: POSITIVE: No Acute Distress, Cooperative - Head Head Exam: POSITIVE: Normal Inspection, Normocephalic, Atraumatic - Neck Neck Exam: POSITIVE: Normal Inspection, Full ROM - Respiratory Respiratory Exam: POSITIVE: Clear to Auscultation - Bilaterally, Breathing Non Labored, Normal To Percussion - Cardiovascular Cardiovascular Exam: POSITIVE: RRR, No Murmur, No Clicks - GI/Abdominal GI/Abdominal Exam: POSITIVE: Normal Bowel Sounds, Non Tender, Non Distended, Soft - Extremities Extremities Exam: POSITIVE: No Clubbing Present, No Edema Present, No Cyanosis Present Results - Labs CBC and BMP: 07/24/16 05:30 07/24/16 05:30 Labs - Last 24 Hours: Laboratory Results 07/24/16 Range/Units 05:30 WBC 6.21 (4.8-10.8) 10^3/uL RBC 3.72 L (4.20-5.40) 10^6/uL Hgb 10.7 L (12.0-16.0) g/dL Hct 33.7 L (37.0-47.0) % MCV 90.6 (81-99) FL MCH 28.8 (27-31) PG MCHC 31.8 L (33-37) g/dL RDW Std Deviation 43.4 (39-50) fL RDW Coeff of Jaime 13.6 (11.5-14.5) % Plt Count 183 (140-350) 10*3/uL MPV 9.2 (7.4-12.2) FL Sodium 134 L (135-145) meq/L Potassium 4.8 (3.8-5.2) meq/L Chloride 102 (98-112) meq/L Carbon Dioxide 23 (23-33) meq/L Anion Gap 9 (5-20) BUN 19 (7-22) mg/dL Creatinine 1.0 (0.50-1.20) mg/dL Estimated GFR (>60 ml/min/1.73m(2)) BUN/Creatinine Ratio 19.00 (6-20) Glucose 136 H (78-110) mg/dL Calculated Osmolality 281.0 (267-292) mOsm/kg Calcium 8.4 L (8.7-10.7) mg/dL Assessment and Plan - Patient Problems (1) Nausea and vomiting Current Visit: No Status: Acute Comment: Continue Compazine and this is improved (2) Status post left knee replacement Current Visit: Yes Status: Acute Comment: Deferred to Dr. Pryor for anticoagulation pain is controlled off her CHANGEOVER OPERATOR pump continue PTOT
--- NOTE | 2016-07-24 15:30 | ORTHO.PROG ---
Last Taken Vital Signs: Vital Signs - Last Taken Temperature 97.4 F 07/24/16 12:26 Pulse Rate 81 07/24/16 12:26 Respiratory Rate 18 07/24/16 12:26 Blood Pressure 126/85 07/24/16 12:26 Pulse Ox 91 07/24/16 12:26 Subjective: Patient feels better this afternoon when she did this morning she sat at the bedside but did not get up but now wants to go to the bathroom to brush her teeth and fixed herself up. Objective: Patient's dressing is clean and dry motor and sensory exam is nonfocal she interestingly he can do a straight leg raise but has some pain associated with this. Denies any calf, popliteal or adductor hiatus or thigh pain. No distal swelling or edema. Intake and Output - 8hrs 07/23/16 07/24/16 07/24/16 07/24/16 21:59 05:59 13:59 21:59 Intake: IV 600 865 234 Intake Oral Amount 120 600 500 Output: Output, Urinary Catheter 250 500 700 Amount Output, Urine Amount 580 Output, Emesis 400 Output, Estimated Blood 250 Loss Amount Other: Percent Meal Consumed 100% Weight 77.111 kg 83.915 kg Weight Measurement Method Built in [facility] Laboratory Results 07/24/16 Range/Units 05:30 WBC 6.21 (4.8-10.8) 10^3/uL RBC 3.72 L (4.20-5.40) 10^6/uL Hgb 10.7 L (12.0-16.0) g/dL Hct 33.7 L (37.0-47.0) % MCV 90.6 (81-99) FL MCH 28.8 (27-31) PG MCHC 31.8 L (33-37) g/dL RDW Std Deviation 43.4 (39-50) fL RDW Coeff of Jaime 13.6 (11.5-14.5) % Plt Count 183 (140-350) 10*3/uL MPV 9.2 (7.4-12.2) FL Sodium 134 L (135-145) meq/L Potassium 4.8 (3.8-5.2) meq/L Chloride 102 (98-112) meq/L Carbon Dioxide 23 (23-33) meq/L Anion Gap 9 (5-20) BUN 19 (7-22) mg/dL Creatinine 1.0 (0.50-1.20) mg/dL Estimated GFR (>60 ml/min/1.73m(2)) BUN/Creatinine Ratio 19.00 (6-20) Glucose 136 H (78-110) mg/dL Calculated Osmolality 281.0 (267-292) mOsm/kg Calcium 8.4 L (8.7-10.7) mg/dL Vital Signs (24 hrs) Temp Pulse Pulse Resp Resp BP BP 07/24/16 12:26 97.4 F 81 18 126/85 07/24/16 10:17 98 F 74 18 117/67 07/24/16 09:00 97.4 F 86 18 106/64 07/24/16 04:47 97.7 F 80 18 125/66 07/24/16 04:46 18 07/24/16 03:59 07/24/16 03:00 20 07/24/16 00:31 97.6 F 90 20 131/85 07/23/16 22:54 07/23/16 21:00 16 07/23/16 20:00 98.4 F 108 H 20 157/7 07/23/16 19:54 18 07/23/16 19:00 97.7 F 108 H 20 135/81 07/23/16 18:37 97.2 F 99 16 138/74 07/23/16 18:04 97 F 98 16 136/74 07/23/16 17:45 97 F 99 16 137/77 07/23/16 17:30 97 F 94 16 144/78 07/23/16 17:15 97 F 96 14 142/87 07/23/16 17:10 97.7 F 89 16 144/76 07/23/16 17:05 97.5 F 95 15 146/80 07/23/16 16:55 97.5 F 90 14 143/73 07/23/16 16:45 97.6 F 97 13 145/59 07/23/16 16:40 98.0 F 95 14 147/93 07/23/16 16:35 98.0 F 94 15 156/77 07/23/16 16:30 98.0 F 100 16 146/80 07/23/16 16:25 98.0 F 98 16 146/87 Pulse Ox 07/24/16 12:26 91 05/06/17 10:17 93 07/24/16 09:00 91 07/24/16 04:47 95 07/24/16 04:46 07/24/16 03:59 93 07/24/16 03:00 95 07/24/16 00:31 98 07/23/16 22:54 100 07/23/16 21:00 07/23/16 20:00 97 07/23/16 19:54 07/23/16 19:00 96 07/23/16 18:37 94 07/23/16 18:04 94 07/23/16 17:45 93 07/23/16 17:30 93 07/23/16 17:15 95 07/23/16 17:10 07/23/16 17:05 07/23/16 16:55 07/23/16 16:45 07/23/16 16:40 07/23/16 16:35 07/23/16 16:30 07/23/16 16:25 Assessment: Left medial unicompartmental knee replacement Plan: Patient will get up with assistance most likely a nurse and a COMMERCIAL ESTIMATOR. We will continue with physical therapy and occupational therapy in the morning. Continue with current pain medication use which has been very limited in her utilization. Ice and elevation, DVT prophylaxis with Lovenox and pneumatics.
[2016-07-24] MEDS: ENOXAPARIN SODIUM 30 MG/0.3 ML SYRINGE SUBCUT SCH (20:29)
[2016-07-25] MEDS: oxyCODONE/APAP 7.5/325 Tab 1 TAB TAB PO PRN ×3 (01:38→21:44)
[2016-07-25 04:49] LABS: HEMATOCRIT 33.6 % (37.0-47.0); MEAN CORPUSCULAR HEMOGLOBIN 29.4 PG (27-31); MEAN CORPUSCULAR HGB CONC 32.7 g/dL (33-37); MEAN CORPUSCULAR VOLUME 89.8 FL (81-99); MEAN PLATELET VOLUME 8.8 FL (7.4-12.2); RED BLOOD COUNT 3.74 10^6/uL (4.20-5.40)
[2016-07-25 04:58] LABS: CALCIUM 8.3 mg/dL (8.7-10.7)
[2016-07-25] MEDS: ENOXAPARIN SODIUM 30 MG/0.3 ML SYRINGE SUBCUT SCH ×2 (08:20→20:31)
[2016-07-25] MEDS: DOCUSATE 100 MG CAPSULE PO SCH ×2 (08:20→20:31)
[2016-07-25] MEDS: Prochlorperazine Tab 10 MG TAB PO PRN ×2 (10:14→19:44)
[2016-07-25] MEDS ORDERED: DIAZEPAM 2 MG TABLET PO PRN (10:42)
--- NOTE | 2016-07-25 10:49 | ORTHO.PROG ---
Last Taken Vital Signs: Vital Signs - Last Taken Temperature 97.8 F 07/25/16 06:54 Pulse Rate 76 07/25/16 06:54 Respiratory Rate 17 07/25/16 06:54 Blood Pressure 137/76 07/25/16 06:54 Pulse Ox 95 07/25/16 06:54 Subjective: Patient notes that she is having a lot of spasming along the anterior aspect of her knee that comes on with attempts at motion otherwise resolves. Patient's symptoms started when therapy try to get her up this morning. Objective: Examination shows that the knee incision is clean and dry it's well approximated , there is no knee effusion, no redness or evidence of infection. Soft tissues look without any significant ecchymosis. Motor and sensory exam distally is intact with good pulses brisk refill no calf, popliteal, adductor hiatus or thigh pain. Patient also seems a little anxious secondary to pain and does not like taking pain medication because it makes her nauseated. Intake and Output - 8hrs 07/24/16 07/24/16 07/25/16 07/25/16 13:59 21:59 05:59 13:59 Intake: IV 234 Intake Oral Amount 980 500 275 220 Output: Output, Urinary Catheter 797 516 7813 200 Amount Other: Percent Meal Consumed 100% 25% 100% Weight 83.915 kg Weight Measurement Method Built in [facility] Laboratory Results 07/25/16 Range/Units 04:34 WBC 8.25 (4.8-10.8) 10^3/uL RBC 3.74 L (4.20-5.40) 10^6/uL Hgb 11.0 L (12.0-16.0) g/dL Hct 33.6 L (37.0-47.0) % MCV 89.8 (81-99) FL MCH 29.4 (27-31) PG MCHC 32.7 L (33-37) g/dL RDW Std Deviation 44.4 (39-50) fL RDW Coeff of Jaime 13.9 (11.5-14.5) % Plt Count 193 (140-350) 10*3/uL MPV 8.8 (7.4-12.2) FL Sodium 137 (135-145) meq/L Potassium 4.4 (3.8-5.2) meq/L Chloride 103 (98-112) meq/L Carbon Dioxide 26 (23-33) meq/L Anion Gap 8 (5-20) BUN 18 (7-22) mg/dL Creatinine 1.0 (0.50-1.20) mg/dL Estimated GFR (>60 ml/min/1.73m(2)) BUN/Creatinine Ratio 18.00 (6-20) Glucose 92 (78-110) mg/dL Calculated Osmolality 285.0 (267-292) mOsm/kg Calcium 8.3 L (8.7-10.7) mg/dL Vital Signs (24 hrs) Temp Pulse Pulse Resp BP Pulse Ox 07/25/16 06:54 97.8 F 76 17 137/76 95 07/25/16 05:00 98.3 F 82 18 131/72 92 07/25/16 03:09 94 07/25/16 00:15 98.2 F 87 20 138/70 90 07/24/16 20:54 98.0 F 93 18 143/83 91 07/24/16 19:00 88 18 94 07/24/16 16:02 97.8 F 84 18 123/79 93 07/24/16 12:26 97.4 F 81 18 126/85 91 Assessment: Left knee medial unicompartmental knee replacement. Patient remains intermittently nauseated, having some intermittent difficulty controlling pain because of unwillingness to take medication. Limited mobility secondary to above and trouble participating with physical therapy. Plan: At the current time we'll see about possibly giving her an anxiolytic medication. She'll have a pain medication available for her as well as antinausea medication including Zofran ,Compazine. We'll continue with anticoagulation with Lovenox 30 mg subcutaneously every 12 hours. Continue to monitor.
--- NOTE | 2016-07-25 12:11 | PDOC(PROG) ---
Interval History: Patient seems anxious no other complaints of talked to the nurse he thinks the same she was given 2 mg of Valium this morning denies chest pain nausea or shortness of breath or no tremors Objective : Data - Labs CBC and BMP: 07/25/16 04:34 07/25/16 04:34 Labs - Last 24 Hours: Laboratory Results 07/25/16 Range/Units 04:34 WBC 8.25 (4.8-10.8) 10^3/uL RBC 3.74 L (4.20-5.40) 10^6/uL Hgb 11.0 L (12.0-16.0) g/dL Hct 33.6 L (37.0-47.0) % MCV 89.8 (81-99) FL MCH 29.4 (27-31) PG MCHC 32.7 L (33-37) g/dL RDW Std Deviation 44.4 (39-50) fL RDW Coeff of Jaime 13.9 (11.5-14.5) % Plt Count 193 (140-350) 10*3/uL MPV 8.8 (7.4-12.2) FL Sodium 137 (135-145) meq/L Potassium 4.4 (3.8-5.2) meq/L Chloride 103 (98-112) meq/L Carbon Dioxide 26 (23-33) meq/L Anion Gap 8 (5-20) BUN 18 (7-22) mg/dL Creatinine 1.0 (0.50-1.20) mg/dL Estimated GFR (>60 ml/min/1.73m(2)) BUN/Creatinine Ratio 18.00 (6-20) Glucose 92 (78-110) mg/dL Calculated Osmolality 285.0 (267-292) mOsm/kg Calcium 8.3 L (8.7-10.7) mg/dL Objective : Exam - General General Appearance: Cooperative - Head Head Exam: Normal Inspection - Respiratory Respiratory Exam: Clear to Auscultation - Bilaterally, Breathing Non Labored, Normal To Percussion - Cardiovascular Cardiovascular Exam: RRR, No Murmur, No Clicks, No Gallops - GI/Abdominal GI/Abdominal Exam: Normal Bowel Sounds, Non Tender, Non Distended, Soft - Extremities Extremities Exam: No Clubbing Present, No Edema Present - Neurological Neurological Exam: Alert, Oriented x 3, CN II-XII Intact, No Facial Droop, Speech Intact / Clear - Psychiatric Psychiatric Exam: Anxious Assessment and Plan - Patient Problems (1) Nausea and vomiting Current Visit: No Status: Acute Comment: This is resolved (2) Status post left knee replacement Current Visit: Yes Status: Acute (3) Anxiety Current Visit: Yes Status: Acute Comment: I would prefer Xanax 3 times a day shorter acting instead of Valium which per her from participating in PT Photo / Body Diagrams - Uploaded Photos Uploaded Photos:
[2016-07-25] MEDS ORDERED: ALPRAZolam Tab 1 MG TABLET PO PRN (12:14)
--- NOTE | 2016-07-25 12:37 | PT.PROG ---
Progress Note Progress Note: S: pt reports she still isn't feeling the greatest. pt reports her knee is still painful. O: nsg okay'd prior to PT. pt instructed in standing from chair w/ min assist x 2 and knee immobilizer on. pt instructed to ambulate 15 feet with CGA x2 and max cues for safety with standard walker. pt returned to chair with min assist x 2. pt left in chair with chair alarm activated and call light within reach. A: pt tolerated therapy better today than yesterday. pt demo improvement in mobility. pt continues to benefit from skilled therapy. P: cont per POC
[2016-07-25] MEDS: fentaNYL Inj 100 MCG/2 ML VIAL IVP PRN ×2 (13:22→19:34)
[2016-07-25] MEDS: BISACODYL 5 MG TABLET PO PRN (20:31)
--- NOTE | 2016-07-25 21:58 | DI ---
XR KNEE 1 OR 2 VWS,07/23/2016 4:04 PM: Clinical History: Left unicompartmental replacement Previous Exam: May 31, 2016 Findings: AP and crosstable lateral views of the left knee are obtained, and demonstrate postsurgical changes c onsistent with hemiarthroplasty of the left medial compartment. There is a subcutaneous free air. There is a left knee joint effusion. Impression: Postsurgical changes of the left knee without fractures or hardware loosening.
[2016-07-26] MEDS: oxyCODONE/APAP 7.5/325 Tab 1 TAB TAB PO PRN ×4 (02:37→17:20)
[2016-07-26 04:58] LABS: HEMATOCRIT 35.6 % (37.0-47.0); HEMOGLOBIN 11.8 g/dL (12.0-16.0); MEAN CORPUSCULAR HEMOGLOBIN 29.5 PG (27-31); MEAN CORPUSCULAR HGB CONC 33.1 g/dL (33-37); MEAN PLATELET VOLUME 9.5 FL (7.4-12.2)
[2016-07-26 05:05] LABS: BUN/CREATININE RATIO 14.44 (6-20); CALCIUM 8.8 mg/dL (8.7-10.7)
[2016-07-26] MEDS: BISACODYL 5 MG TABLET PO PRN (10:14)
[2016-07-26] MEDS: ENOXAPARIN SODIUM 30 MG/0.3 ML SYRINGE SUBCUT SCH (10:14)
[2016-07-26] MEDS: DOCUSATE 100 MG CAPSULE PO SCH (10:14)
--- NOTE | 2016-07-26 10:38 | PDOC(PROG) ---
Interval History: Patient is doing great today she looks 100 per time times better participated in physical therapy once we changed her narcotics to fentanyl immediately felt better with pain relief and was not jittery I don't believe the patient tolerates the narcotics very well no complaints and look forward to doing more physical therapy Objective : Data - Labs CBC and BMP: 07/26/16 04:14 07/26/16 04:14 Labs - Last 24 Hours: Laboratory Results 07/26/16 Range/Units 04:14 WBC 6.62 (4.8-10.8) 10^3/uL RBC 4.00 L (4.20-5.40) 10^6/uL Hgb 11.8 L (12.0-16.0) g/dL Hct 35.6 L (37.0-47.0) % MCV 89.0 (81-99) FL MCH 29.5 (27-31) PG MCHC 33.1 (33-37) g/dL RDW Std Deviation 43.4 (39-50) fL RDW Coeff of Jaime 13.7 (11.5-14.5) % Plt Count 199 (140-350) 10*3/uL MPV 9.5 (7.4-12.2) FL Sodium 135 (135-145) meq/L Potassium 3.8 (3.8-5.2) meq/L Chloride 100 (98-112) meq/L Carbon Dioxide 28 (23-33) meq/L Anion Gap 7 (5-20) BUN 13 (7-22) mg/dL Creatinine 0.9 (0.50-1.20) mg/dL Estimated GFR (>60 ml/min/1.73m(2)) BUN/Creatinine Ratio 14.44 (6-20) Glucose 104 (78-110) mg/dL Calculated Osmolality 279.0 (267-292) mOsm/kg Calcium 8.8 (8.7-10.7) mg/dL Objective : Exam - Respiratory Respiratory Exam: Clear to Auscultation - Bilaterally, Breathing Non Labored - Cardiovascular Cardiovascular Exam: RRR, No Murmur, No Clicks - GI/Abdominal GI/Abdominal Exam: Normal Bowel Sounds, Non Distended, Soft - Extremities Extremities Exam: No Clubbing Present, No Edema Present, No Cyanosis Present Assessment and Plan - Patient Problems (1) Nausea and vomiting Current Visit: No Status: Acute Comment: This is resolved I believe he was from the narcotics once we went to fentanyl and [place] 3 times a day when necessary she is feeling 100 times better I would not recommend narcotics for this patient (2) Status post left knee replacement Current Visit: Yes Status: Acute Comment: Doing well deferred to Dr. Pryor (3) Anxiety Current Visit: Yes Status: Acute Comment: Improved I stopped the Valium this is too long-acting would prevent the patient from doing physical therapy and Xanax when necessary as a better fit and fentanyl IV for pain control is excellent for her Photo / Body Diagrams - Uploaded Photos Uploaded Photos:
[2016-07-26 11:04] VITALS: RESP 17; TEMP 97.5
--- NOTE | 2016-07-26 12:22 | PT.PROG ---
Progress Note Progress Note: S. Patient stated that she is feeling better today compared to yesterday. O. Patient ambulated 50 feet to the wheelchair and was wheeled to the therapy gym where she had heat and micro massage to her knee to decrease edema. and pain. Patient then performed exercises in the form of; heel slides, quad sets, ankle pumps, short arc quads, straight leg raises, seated long arc quads, sit to stand all x 10. Patient ambulated 50 feet around the therapy gym then passive ROM. Patient ambulated 60 feet to the wheelchair and was returned to her room where she was left in her chair with alarm and call light. A. Patient tolerated exercises well this morning. She was able to perform standing exercises without imobilizer. She is gaining strength and mobility. She would continue to benefit from skilled therapy at this time. P. Continue POC. Patient will perform stair training 5/8 PM.
--- NOTE | 2016-07-26 14:18 | PT.PROG ---
Progress Note Progress Note: S. Patient states that she is feeling good and feels that she could go home. O. Patient ambulated 150 feet around the nurses station then ascended and descended 6 stairs. Patient was left in the restroom and nursing was notified. A. Patient tolerated stair training very well. She is very excited to go home and would benefit from Outpatient therapy. P. Patient has met all goals at this time.
--- NOTE | 2016-07-26 14:59 | PTI REPORT ---
Thank you for the referral of Cecy Gamino. She was seen on for an inpatient evaluation status post left unilateral knee replacement. SUBJECTIVE: The patient is a 70-year-old female. The patient reports that she lives at home with her and has a flight and a half of stairs to negotiate at home. The patient reports she is previously independent and does not use an assistive device. The patient reports that her knee has been bothering her for a long time. The patient reports that she hasn't been feeling very good; she has been feeling nauseous since the surgery. PAST MEDICAL HISTORY: Past medical history can be found in the patient's medical record. OBJECTIVE FINDINGS: General observations: The patient was seen in her room after nursing gave PT the okay. Bed mobility: The patient required mod assist x2 to sit edge of bed. Knee immobilizer was adjusted and issued. The patient sat edge of bed for approximately five minutes and began to feel sick and required to lay back down. The patient required mod assist x1 for sit to supine transfer. Vitals: The patient's blood pressure was checked and was 106/70s. Her oxygen saturation was 92%. ASSESSMENT: The patient tolerated treatment poor today due to not feeling well due to illness. The patient would benefit from skilled therapy to improve overall strength, functional mobility, and independence. The patient's prognosis for therapy is good. Problem List: Decreased strength Decreased independence Short-Term Goals: To be met by discharge from inpatient: Patient will be able to transfer from bed to stand independently. Patient will be able to ambulate 100 feet with walker, weight-bearing as tolerated. Patient will be able to ascend and descend five stairs with walker, weight- bearing as tolerated. Long-Term Goals: To be met following discharge from inpatient: Patient will be seen by outpatient physical therapy. TREATMENT PLAN: Patient will be seen B.I.D during the week and one time per day over the weekend as an inpatient for therapeutic exercise, functional activity, gait training, neuromuscular reeducation, manual therapy, and modalities as needed. INITIAL TREATMENT: Treatment today consisted of the initial evaluation. The patient didn't feel well enough to do any further activity. The patient was left with call light within reach and head of bed elevated. Nursing was notified. The patient was issued a walker. ALYSSA
--- NOTE | 2016-07-26 16:53 | OT AM DAY ---
Diagnosis : Left Uni-Knee Replacement AM - Occupational Therapy S: The therapist did attempt an OT evaluation this morning, but the patient was very nauseous with her pain pills and has been since surgery. The patient did attempt to sit edge of bed for the therapist, but at that point did get very nauseous and laid back down. We are going to postpone our evaluation. We will attempt again tomorrow morning. ALYSSA
--- NOTE | 2016-07-26 19:01 | DCSUMMARY ---
Hospitalization Summary Hospital Course: Final Discharge Diagnosis: left uni-knee replacement Diagnostic Data, Laboratory Data, and Procedures of Signifigance: History and Physical pertinent to Admission: Past Medical History Medical History: 1. At one point in time they thought that she had multiple sclerosis but she said she went to a different neurologist in [place] and they told her she does not have it. 2. Chronic dizziness. This was attributed to inner ear problem and that seemed to be improved Surgical History: 1. Hysterectomy. 2. Shoulder surgery. 3. Cholecystectomy Pertinent Family History: She states that her father of a brain tumor, and her mother is still alive Past Social History: Does not smoke or drink. 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 She's been for over 47 years. Tobacco Use: Never Smoker Substance Use Type: None Course of Hospitalization: Is a very nice 70-year-old female who underwent left uni-knee replacement hospitalist service was consulted for nausea and anxiety turns out to be patient did well postop she did not tolerate narcotics well when I switched her to fentanyl for pain control she did very well was able to participate in therapy and actually orthopedic surgery decided that with physical therapy that she could be discharged home she is in stable and improved condition Dr. Pryor wrote scripts for anticoagulation and pain control she will follow up with him as needed and will continue taking her usual home meds. I discussed this with the patient which agrees On the date of discharge, the patient was examined: Gen.: No acute distress, alert, nontoxic Heart: Regular rate and rhythm, no murmurs, clicks, gallops, or rubs Lungs: Clear to auscultation bilaterally, breathing is nonlabored Abdomen/GI: Normal tones on auscultation, soft, nontender, nondistended Musculoskeletal/extremities: No clubbing, cyanosis, or edema Vitals reviewed and are listed below Vital Signs (24 hrs) Temp Pulse Resp BP Pulse Ox 07/26/16 11:03 97.5 F 80 17 147/81 94 07/26/16 06:43 97.7 F 79 18 138/80 93 07/26/16 04:32 97.3 F 71 16 132/74 92 07/26/16 00:27 98.2 F 81 16 124/73 94 07/25/16 20:11 99.4 F 93 16 141/84 92 Assessment and Plan: 1. As per discharge assessments above 2. Disposition: Home to [facility] as scheduled 3. Condition on discharge, stable and improved. 4. Diet: regular diet 5. Activities: resume normal activities 6. Follow-Up: 1. PCP 2. 7. Medications at the Time of Discharge: 8. Time, care, counseling and coordination of care for this discharge is greater than 30 minutes. Exam - Vitals Vital Signs: Vital Signs Temperature 97.5 F Temperature Source Temporal Artery Scan Pulse Rate [Apical] 88 Pulse Rate [Pulse Oximeter] 80 Pulse Rate 89 Respiratory Rate [left knee] 18 Respiratory Rate 17 Blood Pressure [Left Arm] 147/81 Blood Pressure 144/76 Pulse Ox 94 Oxygen Flow Rate [left knee] 1 Oxygen Flow Rate 2 Oxygen Flow Rate 3 Oxygen Delivery Method Room Air Height 5 ft 4 in Weight 76.929 kg Patient Problems - Patient Problem List (1) Nausea and vomiting Status: Acute (2) Status post left knee replacement Status: Acute (3) Anxiety Status: Acute
--- NOTE | 2016-07-27 08:50 | OTI REPORT ---
Thank you for the referral of Cecy Gamino. She was seen on 07/26/16 for an occupational therapy inpatient evaluation status post left unilateral knee replacement. SUBJECTIVE: The patient is a 70-year-old female who is being seen secondary to having a partial knee replacement on the left. The patient states prior to admission she was independent with ADLs [place] patient and her stated that they do not have a high rise toilet seat or a shower chair. PAST MEDICAL HISTORY: Past medical history can be found in the patient's medical record. OBJECTIVE FINDINGS: Bed mobility: The patient was able to come from supine to sit with increased time but was able to do so independently. Activities of daily living: The patient was not able to dress herself without adaptive equipment. The patient was issued a apparel machinery instructor and sock aide. The patient was able to doff socks with verbal cues using the apparel machinery instructor. She was able to don clothes using the apparel machinery instructor with stand by assistance. The patient was able to use the sock aide independently after demonstration. The patient thought the sock aide was a great tool to use at home as donning socks has been kind of difficult for her prior to admission. The patient was also issued a bath sponge. ASSESSMENT: The patient is doing well. With equipment the patient requires modified independence. She is making gains with overall functional abilities and does not need further OT at this time. Occupational Therapy Goals: To be met following discharge from inpatient: Patient will be able to use adaptive equipment in order to dress self independently. Patient will be discharged home, demonstrating safety and independence with all functional transfers and tasks. TREATMENT PLAN: Patient will be seen for evaluation only. Patient will be issued adaptive equipment for home use. INITIAL TREATMENT: Treatment today consisted of the initial evaluation activities only. ALYSSA
== END 2016-07-26 17:50 | disposition home or self-care (01) | DRG 470 ==
LOC: OPS 09:56 → MED/SURG 17:12
PROVIDERS: ADMIT Orthopaedic Surgery; ATTEND Orthopaedic Surgery
PROC: 0SRW0J9 Replacement of Left Knee Joint, Tibial Surface with Synthetic Substitute, Cemented, Open Approach (ICD-10-PCS; principal; 2016-07-23 12:30)
DX: M13.862 Other specified arthritis, left knee (principal); R11.2 Nausea with vomiting, unspecified; F41.9 Anxiety disorder, unspecified
CPT/HCPCS: 36415; 73560; 80048; 81003; 85027; 86850; 86900; 86901; 94150; 94761; 97110; 97161; 97165; 97530; A4216; J0690; J0780; J1100; J1650; J1885; J2001; J2250; J2405; J3010; J3490; J7030; J7040; J7050; J7120

== ENCOUNTER → 2016-08-09 | Outpatient (CLI) | payer OTHER, MEDICARE | LOC: MMPC 10:00 | PROVIDERS: ATTEND Orthopaedic Surgery | DX: Z96.652 Presence of left artificial knee joint (principal) ==

== ENCOUNTER → 2016-08-25 | Outpatient (CLI) | payer OTHER, MEDICARE | LOC: MMPC 10:00 | PROVIDERS: ATTEND Physician Assistant | DX: T81.4XXA Infection following a procedure, initial encounter (principal); Z96.652 Presence of left artificial knee joint ==

== ENCOUNTER → 2016-08-30 | Outpatient (CLI) | payer OTHER, MEDICARE ==
--- NOTE | 2016-08-30 12:20 | DI ---
XR KNEE 3 VW,08/30/2016 9:16 AM: Clinical History: Status post unicompartmental knee replacement. Previous Exam: July Findings: 3 views of the left knee are obtained, and demonstrate stable postsurgical changes consistent with a left unicompartmental arthroplasty. There is a curvilinear calcified density along the medial proximal tibia which was not seen on the pr ior exam. There also appears to be new overhanging of the tibial component. There is no evidence of hardware loosening. There is normal-appearing blue within the proximal medial femur. The surrounding soft tissues are unremarkable. Impression: Status post left medial unicompartmental arthroplasty. New curvilinear density parallel to the medial proximal tibia. This is worrisome for a small fracture as there is now new overhang of the tibial component.
== END ==
LOC: ORTHO 09:26
PROVIDERS: ATTEND Orthopaedic Surgery
DX: T81.4XXA Infection following a procedure, initial encounter (principal); Z96.652 Presence of left artificial knee joint; Z98.890 Other specified postprocedural states
CPT/HCPCS: 73562

== ENCOUNTER 2016-09-07 20:42 | Inpatient (IN) | payer OTHER, MEDICARE ==
[2016-09-07] MEDS ORDERED: Sodium Chloride 0.9% 1,000 ML PRIMARY IV ONE (20:56)
[2016-09-07] MEDS ORDERED: NORMAL SALINE 10 ML SYRINGE FLUSH IVP PRN ×3 (20:56→23:08)
[2016-09-07] MEDS ORDERED: KETOROLAC 15 MG/1 ML VIAL IVP ONE (20:59)
[2016-09-07] MEDS ORDERED: fentaNYL Inj 100 MCG/2 ML VIAL IVP ONE (20:59)
[2016-09-07 21:48] LABS: BLOOD UREA NITROGEN 20 mg/dL (7-22); BUN/CREATININE RATIO 15.38 (6-20); CALCIUM 8.9 mg/dL (8.7-10.7); SERUM ALBUMIN 4.1 g/dL (3.5-4.8)
[2016-09-07 22:19] LABS: BASOPHILS # (AUTO) 0.02 10*3/UL; BASOPHILS % (AUTO) 0.2 % (0-1); EOSINOPHILS # (AUTO) 0.06 10*3/UL; EOSINOPHILS % (AUTO) 0.7 % (0-8); HEMATOCRIT 36.7 % (37.0-47.0); HEMOGLOBIN 12.3 g/dL (12.0-16.0); MEAN CORPUSCULAR HEMOGLOBIN 29.3 PG (27-31); MEAN CORPUSCULAR HGB CONC 33.5 g/dL (33-37); MEAN CORPUSCULAR VOLUME 87.4 FL (81-99); MEAN PLATELET VOLUME 8.7 FL (7.4-12.2); MONOCYTES # (AUTO) 0.57 10*3/UL (0.3-0.8); MONOCYTES % (AUTO) 6.2 % (5-15); NEUTROPHILS # (AUTO) 6.38 10*3/UL; NEUTROPHILS % (AUTO) 69.7 % (50-80)
[2016-09-07 22:20] LABS: PLATELET MORPHOLOGY COMMENT NORMAL MORPHOLOGY (NORM); RBC MORPHOLOGY COMMENT NORMAL MORPHOLOGY (NORM); WBC MORPHOLOGY COMMENT NORMAL MORPHOLOGY (NORM)
--- NOTE | 2016-09-07 22:35 | DI ---
HISTORY: Left leg pain; recent surgery. COMPARISON: None available. TECHNIQUE: Pulse wave Doppler and real-time analysis of the left lower extremity deep venous system from the common femoral vein to the proximal posterior tibial/peroneal veins. FINDINGS: Examination demonstrates no evidence of intraluminal thrombus. The deep veins are completely compressible at all these levels. There is normal respiratory variatio n and augmentation of the venous wave forms. There is evidence of a 3.3 x 2.4 x 1.3 cm anechoic collegian in the posterior medial popliteal fossa. IMPRESSION: 1. Normal left lower extremity deep venous ultrasound study, no evidence of venous thrombosis. 2. Probable small popliteal (Bakers) cyst. NOTE: The interpreting Radiologist was not present at the time of ultrasound interrogation.
[2016-09-07] MEDS ORDERED: fentaNYL Inj 100 MCG/2 ML VIAL IVP PRN ×2 (22:55→23:08)
--- NOTE | 2016-09-07 23:00 | PDOC ---
History and Physical - History of Present Illness History of Present Illness: Is a very nice 71-year-old female who seeks ago underwent left knee surgery, unicompartmental knee replacement. Last night at home while picking up the bucket had some sudden onset of knee pain and was unable to undulate any further and called the ambulance and was seen in the ER. Infection was ruled out labs were reviewed patient was admitted for pain control Plan I ordered an MRI of her knee for this morning Past Medical History Medical History: 1. At one point in time they thought that she had multiple sclerosis but she said she went to a different neurologist in [place] and they told her she does not have it. 2. Chronic dizziness. This was attributed to inner ear problem and that seemed to be improved Surgical History: 1. Hysterectomy. 2. Shoulder surgery. 3. Cholecystectomy Pertinent Family History: She states that her father of a brain tumor, and her mother is still alive Past Social History: Does not smoke or drink. 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 She's been for over 47 years. Tobacco Use: Never Smoker Substance Use Type: None Medication / Allergies Home Medications: Home Medications Medication Instructions Recorded Confirmed Type NK [No Home Medications Reported] 09/07/16 09/07/16 History Allergies/Adverse Reactions: Allergies Allergy/AdvReac Type Severity Reaction Status Date / Time codeine Allergy Severe SHORTNESS Verified 09/08/16 06:26 OF BREATH Penicillins Allergy Severe Anaphylaxis Verified 09/08/16 06:26 morphine Allergy NOT Verified 09/08/16 06:26 APPLICABLE beet sugar Allergy Unknown NOT Uncoded 09/08/16 06:26 APPLICABLE Review of Systems - Respiratory Respiratory: DENIES: Negative System Review, Cough, Sputum, Dyspnea At Rest, Dyspnea with Exertion, Pleuritic Pain, Hemoptysis, Wheezing, Other, See HPI - Cardiovascular Cardiovascular: DENIES: Negative System Review, Chest Pain, Edema, Syncope, Palpitations, Orthopnea, Paroxysmal Nocturnal Dyspnea, Other, See HPI - Gastrointestinal Gastrointestinal / Abdominal: DENIES: Negative System Review, Nausea, Vomiting, Diarrhea, Constipation, Abdominal Pain, Bloody Stool, Poor Appetite, Heartburn, Regurgitation, Bloating, Lactose Intolerance, Melena, Bright Red Blood Per Rectum, Other, See HPI Exam - General General Appearance: POSITIVE: Cooperative - Respiratory Respiratory Exam: POSITIVE: Clear to Auscultation - Bilaterally, Breathing Non Labored, Normal To Percussion - Cardiovascular Cardiovascular Exam: POSITIVE: RRR, No Murmur, No Clicks - GI/Abdominal GI/Abdominal Exam: POSITIVE: Non Tender, Non Distended - Extremities Extremities Exam: POSITIVE: No Clubbing Present, No Edema Present, No Cyanosis Present Results - Labs CBC and BMP: 09/08/16 04:58 09/08/16 04:58 Assessment and Plan - Patient Problems (1) Left knee pain Current Visit: Yes Status: Acute Comment: fent/toradol admit for pain control. Dr lott to see patient in am as per Er doc. pt is left kne replacent post op MRI pending
[2016-09-07] MEDS ORDERED: KETOROLAC 15 MG/1 ML VIAL IVP PRN (23:08)
[2016-09-07] MEDS ORDERED: LIDOCAINE W/ SODIUM BICARB 0.5 ML SYR SUBD PRN (23:08)
--- NOTE | 2016-09-07 23:58 | PDOC ---
Lower Extremity Problem HPI - General Chief Complaint: Lower Extremity Problem/Injury Stated Complaint: LEFT KNEE PAIN POSTOP Date Seen by Provider: 09/07/16 Time Seen by Provider: 20:45 Source: POSITIVE: Patient, EMS Exam Limitations: POSITIVE: No limitations Nurse's Notes Reviewed & Considered: Yes EMS Report Reviewed & Considered: Verbal - History of Present Illness Initial Comments: The patient is a 71-year-old female who is brought to the emergency department by ambulance with complaints of severe left knee pain. She underwent a partial knee replacement surgery per Dr. Pryor in July of this year. She states that she has done well postoperatively and is doing physical therapy as an outpatient. She did have a mild stitch abscess and was treated with a round of antibiotics last week. She states that this afternoon she was doing some work in her garden when she had onset of severe pain in her left knee. This has progressively worsened to the point where she can now no longer move her leg at all without severe pain. She subsequently had to call an ambulance to bring her to the hospital from her home in [place]. She denies any fevers or chills, chest pain or shortness of breath and states that she did not have any injury or twist her leg prior to onset of pain. - Patient Home Medications Home Medications: Home Medications NK [No Home Medications Reported] 09/07/16 - Patient Allergies Allergies/Adverse Reactions: Allergies Allergy/AdvReac Type Severity Reaction Status Date / Time codeine Allergy Severe SHORTNESS Verified 09/07/16 20:51 OF BREATH Penicillins Allergy Severe Anaphylaxis Verified 09/07/16 20:51 morphine Allergy NOT Verified 09/07/16 20:51 APPLICABLE beet sugar Allergy Unknown NOT Uncoded 09/07/16 20:51 APPLICABLE Past Medical History - heen HEENT History: Denies History Additional HEENT History: nearsighted, wear glasses, PT REPORTS HAVING "AN INNER EAR PROBLEM". Cardiovascular History: Denies History Respiratory History: Denies History Gastrointestinal History: Gallbladder Disease, Other (please comment) Additional Gastrointestinal History: JOHN Genitourinary History: Denies History Endocrine History: Denies History Musculoskeletal History: Arthritis, Other (please comment) Prosthesis or Implant: No Additional Musculoskeletal History: RIGHT SHOULDER SURGERY Neurological History: Seizures, Other (please comment) Additional Neurological History: WITH SURGERY Blood Disorders: Denies History Psychiatric History: Denies History History of Sexually Transmitted Diseases: No Female Reproductive History: Denies History Obstetrical History: Denies History Cancer History: Denies History In Past Year Been Physically Harmed or Verbally Threatened: No History of MDRO: Unknown History of Other Communicable Diseases: No Tobacco Use: Never Smoker Alcohol Use: None Substance Use Type: None Previous Surgical History: Yes Type / Date of Surgery: HYST/ JOHN/ RIGHT ROTATOR CUFF/ LEFT KNEE SCOPE Anesthesia Reactions: Yes (SEIZURE FOLLOWING NERVE BLOCK, MEDICATION INDUCED) Malignant Hyperthermia: No Significant Family History: No pertinent family hx Past Medical History Reviewed: Reviewed - No Changes ROS - Limitations ROS Limitations: No Limitations Constitution: DENIES: Chills, Fever Cardiovascular: DENIES: Chest Pain, Heart Palpitations Respiratory: DENIES: Hurts To Breathe, Shortness Of Breath Neurological: REPORTS: Denies Neuro Symptoms Gastrointestinal: REPORTS: Denies GI Symptoms Genitourinary: REPORTS: Denies Symptoms Eyes: REPORTS: Denies Symptoms ENT: REPORTS: Denies Symptoms Skin: DENIES: Rash Lower Ext Problem Exam - General Appearance General Appearance: POSITIVE: Alert, Cooperative, No Acute Distress - Extremities Lower Extremity: POSITIVE: Other (Examination of the left lower extremity reveals midline incision over the knee from recent surgery, the lower aspect of this wound is still healing with no obvious surrounding erythema or drainage, there is no obvious redness or swelling to the knee joint itself, she has limited range of motion of the knee secondary to pain even with slight movement at the knee joint) Vascular: POSITIVE: No Vascular Compromise - Neuro / Psych Neuro/Psych: POSITIVE: Sensation Normal, Motor Normal - Skin Skin: POSITIVE: Normal Color, No Rash - HEENT HEENT: POSITIVE: Head Inspection Nml - Respiratory / CVS Respiratory / CVS: POSITIVE: No Respiratory Distress, Breath Sounds Normal, Regular Rate/Rhythm, Heart Sounds Normal Peripheral Pulses: Dorsalis-pedis (L): 2+ - Abdomen Abdomen: Soft: (All Quadrants), Denies Tenderness: (All Quadrants), No Distention: (All Quadrants) Images - Uploaded Photos Uploaded Photos: Lower Ext Problem Progress - Results Reviewed by me Xrays/CTs/US Reviewed by me: Yes Discussed with Radiologist: Yes Radiology Findings: X-ray of the left knee shows a calcification over the lateral aspect of the knee that was not present on previous x-ray, hardware in the medial compartment appears unchanged. Ultrasound of the left lower extremity is negative for DVT, she does have a medial popliteal cyst. Lab Results Reviewed: Yes Lab Results:: Laboratory Results 09/07/16 09/07/16 09/07/16 Range/Units 21:27 21:35 22:16 WBC 9.15 (4.8-10.8) 10^3/uL RBC 4.20 (4.20-5.40) 10^6/uL Hgb 12.3 (12.0-16.0) g/dL Hct 36.7 L (37.0-47.0) % MCV 87.4 (81-99) FL MCH 29.3 (27-31) PG MCHC 33.5 (33-37) g/dL RDW Std Deviation 42.5 (39-50) fL RDW Coeff of Jaime 13.6 (11.5-14.5) % Plt Count 232 (140-350) 10*3/uL MPV 8.7 (7.4-12.2) FL Immature Gran % (Auto) 0.2 (0-5) % Neut % (Auto) 69.7 (50-80) % Lymph % (Auto) 23.0 (10-50) % [place] % (Auto) 6.2 (5-15) % Eos % (Auto) 0.7 (0-8) % Baso % (Auto) 0.2 (0-1) % Immature Gran # (Auto) 0.02 10*3/UL Neut # (Auto) 6.38 10*3/UL Lymph # (Auto) 2.10 10*3/uL [place] # (Auto) 0.57 (0.3-0.8) 10*3/UL Eos # (Auto) 0.06 10*3/UL Baso # (Auto) 0.02 10*3/UL WBC Morphology Comment Normal morphology (NORM) Plt Morphology Comment Normal morphology (NORM) RBC Morph Comment Normal morphology (NORM) ESR 12 (0-20) MM/HR D-Dimer 1.29 H (0.00-0.59) mg/L Sodium 140 (135-145) meq/L Potassium 4.0 (3.8-5.2) meq/L Chloride 110 (98-112) meq/L Carbon Dioxide 18 L (23-33) meq/L Anion Gap 12 (5-20) BUN 20 (7-22) mg/dL Creatinine 1.3 H (0.50-1.20) mg/dL Estimated GFR [employer] Supervisor BUN/Creatinine Ratio 15.38 (6-20) Glucose 100 (78-110) mg/dL Calculated Osmolality 292.0 (267-292) mOsm/kg Uric Acid 6.2 (2.5-7.5) mg/dl Calcium 8.9 (8.7-10.7) mg/dL Total Bilirubin 0.4 (0.3-1.2) mg/dL AST 28 (8-39) IU/L ALT 30 (9-52) IU/L Alkaline Phosphatase 105 (38-126) IU/L C-Reactive Protein 0.8 (0.0-0.9) mg/dL Total Protein 6.6 (6.1-8.0) g/dL Albumin 4.1 (3.5-4.8) g/dL Globulin 2.5 (2.50-4.10) g/dL Albumin/Globulin Ratio 1.60 (1.3-2.0) mg/g - Patient's Progress MDM / ED Course: The patient received several doses of fentanyl as well as Toradol IV for pain. Her pain was reasonably controlled at rest however with even slight movement she had severe pain. Her white count and CRP are unremarkable and the remainder of her blood work is essentially normal. At this point the etiology of her pain remains unclear. I did contact Dr. Pryor. The patient did not feel that she could go home and will be admitted for pain control. Dr. Leiva has agreed to admit the patient and Dr. Pryor will see her in consultation in the morning. - Consult Counseled: POSITIVE: Patient, Family, RE: Lab Results, RE: Radiology Results, RE : DX, RE: Need for F/U Patient Care Time - Estimated PCT Patient Care Time (In Minutes): 40 Vital Signs - Recent Vital Signs Vital Signs: Vital Signs (Last 8 hours) Temp Pulse Pulse Resp BP BP BP 09/07/16 23:33 97.6 F 89 20 151/79 09/07/16 23:00 98.7 F 84 16 133/79 09/07/16 20:42 98.2 F 88 20 128/85 Pulse Ox 09/07/16 23:33 91 09/07/16 23:00 92 09/07/16 20:42 98 - VS Reviewed Vital Signs Reviewed: Yes Discharge Clinical Impression: Status post left knee replacement, Left knee pain Discharge Disposition: Admit to Observation Condition: Stable
[2016-09-08 05:48] LABS: BASOPHILS # (AUTO) 0.02 10*3/UL; BASOPHILS % (AUTO) 0.3 % (0-1); EOSINOPHILS # (AUTO) 0.14 10*3/UL; EOSINOPHILS % (AUTO) 2.2 % (0-8); HEMOGLOBIN 11.5 g/dL (12.0-16.0); LYMPHOCYTES # (AUTO) 2.52 10*3/uL; MEAN CORPUSCULAR HEMOGLOBIN 28.6 PG (27-31); MEAN CORPUSCULAR HGB CONC 31.9 g/dL (33-37); MEAN CORPUSCULAR VOLUME 89.6 FL (81-99); MEAN PLATELET VOLUME 9.1 FL (7.4-12.2); MONOCYTES # (AUTO) 0.57 10*3/UL (0.3-0.8); NEUTROPHILS # (AUTO) 3.08 10*3/UL; NEUTROPHILS % (AUTO) 48.5 % (50-80); RED BLOOD COUNT 4.02 10^6/uL (4.20-5.40)
[2016-09-08 05:51] LABS: PLATELET MORPHOLOGY COMMENT NORMAL MORPHOLOGY (NORM); RBC MORPHOLOGY COMMENT NORMAL MORPHOLOGY (NORM); WBC MORPHOLOGY COMMENT NORMAL MORPHOLOGY (NORM)
[2016-09-08 05:53] LABS: BLOOD UREA NITROGEN 20 mg/dL (7-22); BUN/CREATININE RATIO 14.28 (6-20); CALCIUM 8.3 mg/dL (8.7-10.7)
--- NOTE | 2016-09-08 07:52 | ORTHO.CON ---
Consult Note - Consult Consult Date: 09/08/16 Reason for Consult: PreOp Consulation : Ortho Requesting Physician: Dr. Duglas Leiva Primary Care Provider: TOM SCHREIBER - History of Present Illness History of Present Illness: 71-year-old female who is about 6 weeks out from a left unicompartmental knee replacement she's been doing extremely well she was at home last evening when she picked up a small cinderblock weighing about 10 pounds was walking and felt a sudden onset of pain and discomfort after about 10 steps when the house could not get up an ambulance was called and brought to the hospital. Patient was admitted for pain control because of significant pain and discomfort she was worked up for evidence of infection blood clots she did have some x-rays a did show small calcification it appears that is not seen on her previous 2 views her initial postoperative films and her last x-rays which were done about 10 days ago which did not show any abnormalities. There was a small amount of calcification in the medial collateral ligament area which is stated this throughout. Patient states the leg are read immediately and she had a lot of swelling. Patient symptoms are located along the anterior lateral aspect of the knee Past Medical History Medical History: 1. At one point in time they thought that she had multiple sclerosis but she said she went to a different neurologist in [place] and they told her she does not have it. 2. Chronic dizziness. This was attributed to inner ear problem and that seemed to be improved Surgical History: 1. Hysterectomy. 2. Shoulder surgery. 3. Cholecystectomy Pertinent Family History: She states that her father of a brain tumor, and her mother is still alive Past Social History: Does not smoke or drink. 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 She's been for over 47 years. Tobacco Use: Never Smoker Substance Use Type: None Medication / Allergies Home Medications: Home Medications Medication Instructions Recorded Confirmed Type NK [No Home Medications Reported] 09/07/16 09/07/16 History Allergies/Adverse Reactions: Allergies Allergy/AdvReac Type Severity Reaction Status Date / Time codeine Allergy Severe SHORTNESS Verified 09/08/16 06:26 OF BREATH Penicillins Allergy Severe Anaphylaxis Verified 09/08/16 06:26 morphine Allergy NOT Verified 09/08/16 06:26 APPLICABLE beet sugar Allergy Unknown NOT Uncoded 09/08/16 06:26 APPLICABLE Exam - - Exam: Examination shows that the patient's gait is quite antalgic she uses a walker she points to her pain as being anterior lateral around the lateral femoral condylar region and the patella region. She cannot fully extend secondary to pain she lacks about 20 flexion beyond about 70 is also painful anterior laterally previously her motion was low to about 125. She is ligamentously stable she has a trace effusion is no redness or erythema well-healed incision good pulses brisk refill nonfocal neurologic exam. Hip motion seems to be good with no marked pain and discomfort. Radiographs of the knee show calcifications or possibly even cement and this is located in the anterior lateral aspect of the knee in the area where she hurts I don't see a donor site from bone. Looking back at to previous sets of x-rays do not see any evidence of the source of this calcification. Laboratory Results 09/07/16 09/07/16 09/07/16 Range/Units 21:27 21:35 22:16 WBC 9.15 (4.8-10.8) 10^3/uL RBC 4.20 (4.20-5.40) 10^6/uL Hgb 12.3 (12.0-16.0) g/dL Hct 36.7 L (37.0-47.0) % MCV 87.4 (81-99) FL MCH 29.3 (27-31) PG MCHC 33.5 (33-37) g/dL RDW Std Deviation 42.5 (39-50) fL RDW Coeff of Jaime 13.6 (11.5-14.5) % Plt Count 232 (140-350) 10*3/uL MPV 8.7 (7.4-12.2) FL Immature Gran % (Auto) 0.2 (0-5) % Neut % (Auto) 69.7 (50-80) % Lymph % (Auto) 23.0 (10-50) % [place] % (Auto) 6.2 (5-15) % Eos % (Auto) 0.7 (0-8) % Baso % (Auto) 0.2 (0-1) % Immature Gran # (Auto) 0.02 10*3/UL Neut # (Auto) 6.38 10*3/UL Lymph # (Auto) 2.10 10*3/uL [place] # (Auto) 0.57 (0.3-0.8) 10*3/UL Eos # (Auto) 0.06 10*3/UL Baso # (Auto) 0.02 10*3/UL WBC Morphology Comment Normal morphology (NORM) Plt Morphology Comment Normal morphology (NORM) RBC Morph Comment Normal morphology (NORM) ESR 12 (0-20) MM/HR D-Dimer 1.29 H (0.00-0.59) mg/L Sodium 140 (135-145) meq/L Potassium 4.0 (3.8-5.2) meq/L Chloride 110 (98-112) meq/L Carbon Dioxide 18 L (23-33) meq/L Anion Gap 12 (5-20) BUN 20 (7-22) mg/dL Creatinine 1.3 H (0.50-1.20) mg/dL Estimated GFR Veterinarian Assistant BUN/Creatinine Ratio 15.38 (6-20) Glucose 100 (78-110) mg/dL Calculated Osmolality 292.0 (267-292) mOsm/kg Uric Acid 6.2 (2.5-7.5) mg/dl Calcium 8.9 (8.7-10.7) mg/dL Total Bilirubin 0.4 (0.3-1.2) mg/dL AST 28 (8-39) IU/L ALT 30 (9-52) IU/L Alkaline Phosphatase 105 (38-126) IU/L C-Reactive Protein 0.8 (0.0-0.9) mg/dL Total Protein 6.6 (6.1-8.0) g/dL Albumin 4.1 (3.5-4.8) g/dL Globulin 2.5 (2.50-4.10) g/dL Albumin/Globulin Ratio 1.60 (1.3-2.0) mg/g 09/08/16 Range/Units 04:58 WBC 6.35 (4.8-10.8) 10^3/uL RBC 4.02 L (4.20-5.40) 10^6/uL Hgb 11.5 L (12.0-16.0) g/dL Hct 36.0 L (37.0-47.0) % MCV 89.6 (81-99) FL MCH 28.6 (27-31) PG MCHC 31.9 L (33-37) g/dL RDW Std Deviation 43.8 (39-50) fL RDW Coeff of Jaime 13.8 (11.5-14.5) % Plt Count 229 (140-350) 10*3/uL MPV 9.1 (7.4-12.2) FL Immature Gran % (Auto) 0.3 (0-5) % Neut % (Auto) 48.5 L (50-80) % Lymph % (Auto) 39.7 (10-50) % [place] % (Auto) 9.0 (5-15) % Eos % (Auto) 2.2 (0-8) % Baso % (Auto) 0.3 (0-1) % Immature Gran # (Auto) 0.02 10*3/UL Neut # (Auto) 3.08 10*3/UL Lymph # (Auto) 2.52 10*3/uL [place] # (Auto) 0.57 (0.3-0.8) 10*3/UL Eos # (Auto) 0.14 10*3/UL Baso # (Auto) 0.02 10*3/UL WBC Morphology Comment Normal morphology (NORM) Plt Morphology Comment Normal morphology (NORM) RBC Morph Comment Normal morphology (NORM) ESR (0-20) MM/HR D-Dimer (0.00-0.59) mg/L Sodium 141 (135-145) meq/L Potassium 4.3 (3.8-5.2) meq/L Chloride 108 (98-112) meq/L Carbon Dioxide 24 (23-33) meq/L Anion Gap 9 (5-20) BUN 20 (7-22) mg/dL Creatinine 1.4 H (0.50-1.20) mg/dL Estimated GFR Veterinarian Assistant BUN/Creatinine Ratio 14.28 (6-20) Glucose 92 (78-110) mg/dL Calculated Osmolality 294.0 H (267-292) mOsm/kg Uric Acid (2.5-7.5) mg/dl Calcium 8.3 L (8.7-10.7) mg/dL Total Bilirubin (0.3-1.2) mg/dL AST (8-39) IU/L ALT (9-52) IU/L Alkaline Phosphatase (38-126) IU/L C-Reactive Protein (0.0-0.9) mg/dL Total Protein (6.1-8.0) g/dL Albumin (3.5-4.8) g/dL Globulin (2.50-4.10) g/dL Albumin/Globulin Ratio (1.3-2.0) mg/g - Vitals Vital Signs: Vital Signs Temperature 97.3 F Temperature Source Temporal Artery Scan Pulse Rate [Pulse Oximeter] 76 Pulse Rate 84 Respiratory Rate 20 Blood Pressure [Left Arm] 113/69 Blood Pressure 133/79 Pulse Ox 91 Oxygen Delivery Method Room Air Height 5 ft 4 in Weight 72.847 kg Results - Labs CBC and BMP: 09/08/16 04:58 09/08/16 04:58 Labs - Last 24 Hours: Laboratory Results 09/08/16 Range/Units 04:58 WBC 6.35 (4.8-10.8) 10^3/uL RBC 4.02 L (4.20-5.40) 10^6/uL Hgb 11.5 L (12.0-16.0) g/dL Hct 36.0 L (37.0-47.0) % MCV 89.6 (81-99) FL MCH 28.6 (27-31) PG MCHC 31.9 L (33-37) g/dL RDW Std Deviation 43.8 (39-50) fL RDW Coeff of Jaime 13.8 (11.5-14.5) % Plt Count 229 (140-350) 10*3/uL MPV 9.1 (7.4-12.2) FL Immature Gran % (Auto) 0.3 (0-5) % Neut % (Auto) 48.5 L (50-80) % Lymph % (Auto) 39.7 (10-50) % [place] % (Auto) 9.0 (5-15) % Eos % (Auto) 2.2 (0-8) % Baso % (Auto) 0.3 (0-1) % Immature Gran # (Auto) 0.02 10*3/UL Neut # (Auto) 3.08 10*3/UL Lymph # (Auto) 2.52 10*3/uL [place] # (Auto) 0.57 (0.3-0.8) 10*3/UL Eos # (Auto) 0.14 10*3/UL Baso # (Auto) 0.02 10*3/UL WBC Morphology Comment Normal morphology (NORM) Plt Morphology Comment Normal morphology (NORM) RBC Morph Comment Normal morphology (NORM) Sodium 141 (135-145) meq/L Potassium 4.3 (3.8-5.2) meq/L Chloride 108 (98-112) meq/L Carbon Dioxide 24 (23-33) meq/L Anion Gap 9 (5-20) BUN 20 (7-22) mg/dL Creatinine 1.4 H (0.50-1.20) mg/dL Estimated GFR Veterinarian Assistant BUN/Creatinine Ratio 14.28 (6-20) Glucose 92 (78-110) mg/dL Calculated Osmolality 294.0 H (267-292) mOsm/kg Calcium 8.3 L (8.7-10.7) mg/dL Assessment and Plan - Assessment / Plan Additional Assessment/Plan Details: Impression: 6 weeks out from right unicompartmental knee replacement doing well until last evening when she had sudden onset of pain question loose body avulsed piece of bone with mechanical irritation to the knee. Plan: At the current time patient is going to have an MRI to look at the knee I think this is helpful we can look to make sure that this is a ventricular see if there is fluid IC Bhardwaj donor site from bone it will be somewhat inhibited because of the unicompartmental knee replacement but I think we should be able to get enough information to make a decision about what might be the source and the best way to proceed. Continue partial weightbearing as tolerated with a walker. DVT prophylaxis. Pain control as needed.
[2016-09-08] MEDS: fentaNYL Inj 100 MCG/2 ML VIAL IVP PRN ×3 (08:30→19:20)
--- NOTE | 2016-09-08 08:51 | DI ---
XR KNEE 3 VW,09/07/2016 8:57 PM: Clinical History: Knee pain status post replacement. Previous Exam: August 30, 2006 Findings: 3 views of the right knee are obtained, and demonstrate stable postsurgical changes consistent with p rior left knee unicompartmental arthroplasty. There is a curvilinear density adjacent to the proximal medial tibia. There is also a vague density overlying the lateral portion of the lateral femoral condyle seen only on the sunrise view. Overlying soft tissues are unremarkable. Impression: 1. New calcified density along the lateral femoral condyle seen only on the sunrise view. This was no t seen on the prior exam. This is a very dense area of calcification, and could represent capsular ca lcifications. This lies anterior to the lateral collateral ligament. 2. Stable linear calcification just medial to the proximal left tibia.
[2016-09-08] MEDS: ENOXAPARIN SODIUM 40 MG/0.4 ML SYRINGE SUBCUT SCH (09:11)
--- NOTE | 2016-09-08 10:17 | DI ---
MRI LOW EXTREMITY JNT W/O CN,09/08/2016 8:00 AM: Clinical History: Extremely knee pain with inability to bear weight or extend the knee. Previous Exam: October 29, 2015 Findings: Multiplanar MR images are obtained through the left knee without contrast, and demonstrate postsurgic al changes consistent with a unicompartmental arthroplasty involving both the femoral and the tibial component. There is also a linear marrow defect extending along the shaft of the humerus from the med ial femoral condyle. This is most consistent with a postoperative drill hole. The popliteus tendon is unremarkable. The anterior and posterior cruciate ligaments are intact. Evalu ation of the knee is limited due to metallic blooming artifact especially in the medial compartment. There is a large knee joint effusion although this was also seen on the prior exam. The lateral meniscus again demonstrates some increased signal involving the free edge of the junction al zone of the posterior horn and body. There is no evidence of flipped fragment. There is some fissuring involving the undersurface of the patella with some subchondral edema. The major vascular flow voids are unremarkable. Signal within the musculature is unremarkable. There is a full-thickness osteochondral defect involving the proximal tibiofibular joint with subchon dral cyst formation. There is a stable intraosseous ganglion at the tibial insertion of the posterior cruciate ligament. The quadriceps and patellar tendons are unremarkable. The dystrophic calcification seen along the lateral margin of the lateral femoral condyle on the plai n film today is also seen, and is just deep to the joint capsule within the joint space in the latera l patellofemoral sulcus. Impression: 1. Curvilinear calcified density within the lateral patellofemoral sulcus appears to represent a loos e body. 2. Complex tear of the posterior horn and body of the lateral meniscus predominantly involving the fr ee edge and junctional zones. Cannot rule out the possibility of recent meniscectomy. Correlate clini jessica. There is no evidence of flipped fragment that would explain a locked knee. 3. Large knee joint effusion.
[2016-09-08] MEDS: Sodium Chloride 0.9% 1,000 ML IV SCH (14:20)
--- NOTE | 2016-09-08 16:32 | ORTHO.PROG ---
Last Taken Vital Signs: Vital Signs - Last Taken Temperature 97.8 F 09/08/16 16:23 Pulse Rate 69 09/08/16 16:23 Respiratory Rate 20 09/08/16 16:23 Blood Pressure 116/73 09/08/16 16:23 Pulse Ox 97 09/08/16 16:23 Subjective: Patient with no change in symptoms has trouble straightening the knee and bending the knee is painful any weightbearing produces anterior lateral knee pain she is quite limited and is using a walker getting around she does not think she can tolerate her symptoms going home. Objective: Motor and sensory exam is nonfocal in the lower extremity painful short of full extension by 30 with pain anterolaterally incision is well-healed motor and sensory exam otherwise is nonfocal except for decreased sensation along the lateral aspect of the incision trace to 1+ effusion good pulses brisk refill tenderness along the anterior lateral aspect of the knee no pain medially over the prostheses. MRI was reviewed which shows what appears to be a loose body in the anterior lateral gutter region donor site for this is unclear question whether this may represent bone cement. Patient with an effusion Intake and Output - 8hrs 09/07/16 09/08/16 09/08/16 09/08/16 21:59 05:59 13:59 21:59 Intake: Intake Oral Amount 360 400 Output: Output, Urine Amount 200 Other: Percent Meal Consumed 100% Weight 76.657 kg 76.657 kg 72.847 kg Weight Measurement Method Stated by Patient Standing Scale Laboratory Results 09/07/16 09/07/16 09/07/16 Range/Units 21:27 21:35 22:16 WBC 9.15 (4.8-10.8) 10^3/uL RBC 4.20 (4.20-5.40) 10^6/uL Hgb 12.3 (12.0-16.0) g/dL Hct 36.7 L (37.0-47.0) % MCV 87.4 (81-99) FL MCH 29.3 (27-31) PG MCHC 33.5 (33-37) g/dL RDW Std Deviation 42.5 (39-50) fL RDW Coeff of Jaime 13.6 (11.5-14.5) % Plt Count 232 (140-350) 10*3/uL MPV 8.7 (7.4-12.2) FL Immature Gran % (Auto) 0.2 (0-5) % Neut % (Auto) 69.7 (50-80) % Lymph % (Auto) 23.0 (10-50) % [place] % (Auto) 6.2 (5-15) % Eos % (Auto) 0.7 (0-8) % Baso % (Auto) 0.2 (0-1) % Immature Gran # (Auto) 0.02 10*3/UL Neut # (Auto) 6.38 10*3/UL Lymph # (Auto) 2.10 10*3/uL [place] # (Auto) 0.57 (0.3-0.8) 10*3/UL Eos # (Auto) 0.06 10*3/UL Baso # (Auto) 0.02 10*3/UL WBC Morphology Comment Normal morphology (NORM) Plt Morphology Comment Normal morphology (NORM) RBC Morph Comment Normal morphology (NORM) ESR 12 (0-20) MM/HR D-Dimer 1.29 H (0.00-0.59) mg/L Sodium 140 (135-145) meq/L Potassium 4.0 (3.8-5.2) meq/L Chloride 110 (98-112) meq/L Carbon Dioxide 18 L (23-33) meq/L Anion Gap 12 (5-20) BUN 20 (7-22) mg/dL Creatinine 1.3 H (0.50-1.20) mg/dL Estimated GFR Paper Sealer BUN/Creatinine Ratio 15.38 (6-20) Glucose 100 (78-110) mg/dL Calculated Osmolality 292.0 (267-292) mOsm/kg Uric Acid 6.2 (2.5-7.5) mg/dl Calcium 8.9 (8.7-10.7) mg/dL Total Bilirubin 0.4 (0.3-1.2) mg/dL AST 28 (8-39) IU/L ALT 30 (9-52) IU/L Alkaline Phosphatase 105 (38-126) IU/L C-Reactive Protein 0.8 (0.0-0.9) mg/dL Total Protein 6.6 (6.1-8.0) g/dL Albumin 4.1 (3.5-4.8) g/dL Globulin 2.5 (2.50-4.10) g/dL Albumin/Globulin Ratio 1.60 (1.3-2.0) mg/g 09/08/16 Range/Units 04:58 WBC 6.35 (4.8-10.8) 10^3/uL RBC 4.02 L (4.20-5.40) 10^6/uL Hgb 11.5 L (12.0-16.0) g/dL Hct 36.0 L (37.0-47.0) % MCV 89.6 (81-99) FL MCH 28.6 (27-31) PG MCHC 31.9 L (33-37) g/dL RDW Std Deviation 43.8 (39-50) fL RDW Coeff of Jaime 13.8 (11.5-14.5) % Plt Count 229 (140-350) 10*3/uL MPV 9.1 (7.4-12.2) FL Immature Gran % (Auto) 0.3 (0-5) % Neut % (Auto) 48.5 L (50-80) % Lymph % (Auto) 39.7 (10-50) % [place] % (Auto) 9.0 (5-15) % Eos % (Auto) 2.2 (0-8) % Baso % (Auto) 0.3 (0-1) % Immature Gran # (Auto) 0.02 10*3/UL Neut # (Auto) 3.08 10*3/UL Lymph # (Auto) 2.52 10*3/uL [place] # (Auto) 0.57 (0.3-0.8) 10*3/UL Eos # (Auto) 0.14 10*3/UL Baso # (Auto) 0.02 10*3/UL WBC Morphology Comment Normal morphology (NORM) Plt Morphology Comment Normal morphology (NORM) RBC Morph Comment Normal morphology (NORM) ESR (0-20) MM/HR D-Dimer (0.00-0.59) mg/L Sodium 141 (135-145) meq/L Potassium 4.3 (3.8-5.2) meq/L Chloride 108 (98-112) meq/L Carbon Dioxide 24 (23-33) meq/L Anion Gap 9 (5-20) BUN 20 (7-22) mg/dL Creatinine 1.4 H (0.50-1.20) mg/dL Estimated GFR Paper Sealer BUN/Creatinine Ratio 14.28 (6-20) Glucose 92 (78-110) mg/dL Calculated Osmolality 294.0 H (267-292) mOsm/kg Uric Acid (2.5-7.5) mg/dl Calcium 8.3 L (8.7-10.7) mg/dL Total Bilirubin (0.3-1.2) mg/dL AST (8-39) IU/L ALT (9-52) IU/L Alkaline Phosphatase (38-126) IU/L C-Reactive Protein (0.0-0.9) mg/dL Total Protein (6.1-8.0) g/dL Albumin (3.5-4.8) g/dL Globulin (2.50-4.10) g/dL Albumin/Globulin Ratio (1.3-2.0) mg/g Vital Signs (24 hrs) Temp Pulse Pulse Resp BP BP BP 09/08/16 16:23 97.8 F 69 20 116/73 09/08/16 11:02 98.2 F 85 20 144/71 09/08/16 06:55 97.3 F 76 20 113/69 09/08/16 05:00 97.4 F 62 16 116/57 09/07/16 23:33 97.6 F 89 20 151/79 09/07/16 23:00 98.7 F 84 16 133/79 09/07/16 20:42 98.2 F 88 20 128/85 Pulse Ox 09/08/16 16:23 97 09/08/16 11:02 98 09/08/16 06:55 91 09/08/16 05:00 97 09/07/16 23:33 91 09/07/16 23:00 92 09/07/16 20:42 98 Assessment: Left unicompartmental knee replacement just over 6 weeks out with evidence of loose body in the anterior lateral compartment Plan: We discussed the patient's current condition and clinical findings as it pertains to the current situation. Surgical versus nonsurgical options risks and benefits were discussed and reviewed. Options moving forward include but are not limited to continued choice to live with their current condition; evaluate their current condition further with imaging studies and/or diagnostic testing, etc.; treat problem/problems with surgical versus nonsurgical methods. The patient demonstrates a clear understanding of our discussion. All questions were answered. Surgical versus nonsurgical options risks and benefits were discussed and reviewed. The risks include but are not limited to bleeding, infection, neurovascular damage, wound problems, deep vein thromboses, pulmonary embolism, fracture, dislocation, nonunion/malunion, need for further surgery, need for blood transfusion, and loss of life and limb. Certainly any surgical procedure may not improve symptoms and potentially could makes symptoms worse. There are no guarantees implied with the discussion of surgical treatment. All questions are answered and the patient wishes to proceed with surgical treatment. In reviewing the MRI and discussing with the patient the symptoms I think are secondary to what appears to be a loose body and the etiology of this is unclear. It is either a small linear piece of bone cement or fragmentation off a cortical piece of bone but I do not see with came from. Looking back at to previous sets of x-rays cannot see the source of this bone/? Cement. We'll proceed along these lines of arthroscopic removal and inspection.
[2016-09-08] MEDS: ONDANSETRON 4 MG/2 ML VIAL IVP PRN (20:16)
[2016-09-09] MEDS: Sodium Chloride 0.9% 1,000 ML IV SCH ×2 (04:04→18:05)
[2016-09-09] MEDS: fentaNYL Inj 100 MCG/2 ML VIAL IVP PRN ×3 (04:04→13:20)
[2016-09-09] MEDS: ONDANSETRON 4 MG/2 ML VIAL IVP PRN ×2 (07:22→13:31)
--- NOTE | 2016-09-09 07:52 | ORTHO.PROG ---
Last Taken Vital Signs: Vital Signs - Last Taken Temperature 97.7 F 09/09/16 06:26 Pulse Rate 66 09/09/16 06:26 Respiratory Rate 17 09/09/16 06:26 Blood Pressure 121/71 09/09/16 06:26 Pulse Ox 95 09/09/16 06:26 Subjective: Patient is a very tearful this morning think she may have a urinary tract infection. She has had no Hutchison placed, we did take a urine specimen Objective: The knee is in a little bit better extension she has limited flexion secondary to pain motor and sensory exam is nonfocal incision is clean and dry. Vital Signs (24 hrs) Temp Pulse Resp BP BP Pulse Ox 09/09/16 06:26 97.7 F 66 17 121/71 95 09/09/16 04:49 97.1 F 82 18 117/64 92 09/09/16 00:43 97.0 F 80 18 128/73 91 09/08/16 21:00 97.6 F 72 22 129/78 94 09/08/16 16:23 97.8 F 69 20 116/73 97 09/08/16 11:02 98.2 F 85 20 144/71 98 Assessment: Left loose body to knee Plan: Patient will be scheduled for arthroscopic removal of foreign body today, she agrees and wishes to continue on proceed. We discussed the patient's current condition and clinical findings as it pertains to the current situation. Surgical versus nonsurgical options risks and benefits were discussed and reviewed. Options moving forward include but are not limited to continued choice to live with their current condition; evaluate their current condition further with imaging studies and/or diagnostic testing, etc.; treat problem/problems with surgical versus nonsurgical methods. The patient demonstrates a clear understanding of our discussion. All questions were answered. Surgical versus nonsurgical options risks and benefits were Discussed and reviewed. Risks include but are not limited to bleeding, infection, neurovascular damage, wound problems, deep vein thromboses, pulmonary embolism, need for further surgery, and loss of life and limb. Certainly any surgical procedure may not improve symptoms and potentially could makes symptoms worse. There are no guarantees implied with the discussion of surgical treatment. All questions were answered and the patient wishes to proceed with surgical treatment.
[2016-09-09 08:43] LABS: BUN/CREATININE RATIO 21.81 (6-20); CALCIUM 8.5 mg/dL (8.7-10.7); SERUM ALBUMIN 3.5 g/dL (3.5-4.8)
--- NOTE | 2016-09-09 08:44 | PDOC(PROG) ---
Interval History: Patient had her MRI appears to be loose particles in her left knee orthopedic surgery is taking her to surgery this afternoon patient appears anxious and frustrated about her left knee pain she is under control with fentanyl Objective : Data - Labs CBC and BMP: 09/08/16 04:58 09/08/16 04:58 Objective : Exam - Extremities Additional Extremities Exam Details: Left knee swelling Assessment and Plan - Patient Problems (1) Left knee pain Current Visit: Yes Status: Acute Comment: Continue pain meds MRI positive for loose particle going to OR today with Dr. Pryor
[2016-09-09] MEDS ORDERED: Lactated Ringers 1,000 ML PRIMARY IV ONE (10:33)
[2016-09-09 12:11] LABS: BILIRUBIN,URINE NEGATIVE (NEG); CLARITY,URINE CLEAR (CLEAR); COLOR,URINE YELLOW; GLUCOSE, URINE (UA) NEGATIVE (NEG); NITRATE,URINE NEGATIVE (NEG); OCCULT BLOOD,URINE NEGATIVE (NEG); PROTEIN,URINE NEGATIVE (NEG); UROBILINOGEN,URINE 0.2 mg/dL (0.2)
[2016-09-09 12:22] LABS: RBC,URINE 0-1 /hpf; URINE SAMPLE TYPE CLEAN CATCH URINE; WBC,URINE 0-1
[2016-09-09] MEDS ORDERED: EPINEPHrine Inj (1:1,000) 30mg/30ml vial ONE (12:59)
[2016-09-09] MEDS ORDERED: Ropivacaine 0.2% VIAL 20 ML ONE (12:59)
[2016-09-09] MEDS ORDERED: HYDROmorphone 2 MG/1 ML IVP PRN (14:13)
[2016-09-09] MEDS ORDERED: NORMAL SALINE 10 ML SYRINGE FLUSH IVP PRN ×2 (14:13→17:56)
[2016-09-09] MEDS ORDERED: ATROPINE SULFATE 0.4 MG/1 ML VIAL IVP PRN (14:13)
[2016-09-09] MEDS ORDERED: fentaNYL Inj 100 MCG/2 ML VIAL IVP PRN (14:13)
[2016-09-09] MEDS ORDERED: ONDANSETRON 4 MG/2 ML VIAL IVP PRN ×2 (14:13→17:56)
[2016-09-09] MEDS ORDERED: Ondansetron ODT Tab 8 MG TAB PO PRN ×2 (14:13→17:56)
[2016-09-09] MEDS ORDERED: Lactated Ringers 1,000 ML PRIMARY IV SCH ×3 (14:15→18:50)
[2016-09-09] MEDS ORDERED: LIDOCAINE MPF 2% - 5 ML (20 MG/1 ML) ONE (14:37)
[2016-09-09] MEDS ORDERED: fentaNYL Inj 100 MCG/2 ML VIAL ONE (14:37)
[2016-09-09] MEDS ORDERED: MIDAZOLAM 5 MG/1 ML ONE (14:37)
[2016-09-09] MEDS ORDERED: Clindamycin 900mg (Premix) 50 ML IV ONE (14:58)
[2016-09-09] MEDS ORDERED: LIDOCAINE W/ SODIUM BICARB 0.5 ML SYR ONE (15:34)
[2016-09-09] MEDS ORDERED: DEXAMETHASONE PF 10 MG/1 ML VIAL ONE (15:59)
[2016-09-09] MEDS ORDERED: ePHEDrine Inj 50 MG/ML AMP ONE (16:13)
[2016-09-09] MEDS: ENOXAPARIN SODIUM 40 MG/0.4 ML SYRINGE SUBCUT SCH (16:27)
[2016-09-09] MEDS ORDERED: ONDANSETRON 4 MG/2 ML VIAL ONE (16:34)
[2016-09-09] MEDS ORDERED: Prochlorperazine Tab 10 MG TAB PO PRN (17:56)
[2016-09-09] MEDS ORDERED: HYDROcodone-APAP 7.5 MG-325 MG TABLET PO PRN (17:56)
[2016-09-09] MEDS ORDERED: BISACODYL 10 MG SUPPOSITORY RECTAL PRN (17:56)
[2016-09-09] MEDS ORDERED: CALCIUM CARBONATE 500 MG (TUMS) CHEWABLE TABLET PO PRN (17:56)
[2016-09-09] MEDS ORDERED: MAG HYDROX/AL HYDROX/SIMETH 30 ML SUSP PO PRN (17:56)
[2016-09-09] MEDS ORDERED: diphenhydrAMINE 25 MG CAPSULE PO PRN (17:56)
[2016-09-09] MEDS ORDERED: IBUPROFEN 400 MG TABLET PO PRN (17:56)
[2016-09-09] MEDS ORDERED: ACETAMINOPHEN 325 MG TABLET PO PRN (17:56)
[2016-09-09] MEDS ORDERED: BISACODYL 5 MG TABLET PO PRN (17:56)
[2016-09-09] MEDS: Clindamycin 900mg (Premix) 900 MG in Dextrose 1 BAG IV SCH (20:15)
[2016-09-10] MEDS: Clindamycin 900mg (Premix) 900 MG in Dextrose 1 BAG IV SCH ×2 (00:13→05:13)
--- NOTE | 2016-09-10 08:10 | ORTHO.PROG ---
Last Taken Vital Signs: Vital Signs - Last Taken Temperature 97.5 F 09/10/16 05:00 Pulse Rate 83 09/10/16 05:00 Respiratory Rate 18 09/10/16 05:00 Blood Pressure 124/65 09/10/16 05:00 Pulse Ox 91 09/10/16 05:00 Subjective: Patient states she is feeling great this morning has used no pain medication surgery. She states she feels like a new person Objective: Examination shows that the patient's leg is in a Jus wrap reading the paper motor and sensory exam is nonfocal with good motion good pulses brisk refill nonfocal neurologic exam. Assessment: Left knee arthroscopy status post left unicompartmental knee replacement removal of 2 pieces of cement Plan: Mobilized with physical therapy today. If continuing to do well by early afternoon we could most likely discharge her home. Continue with ice elevation and symptomatic care.
[2016-09-10 08:52] VITALS: RESP 20; TEMP 97.8
[2016-09-10] MEDS ORDERED: ENOXAPARIN SODIUM 30 MG/0.3 ML SYRINGE SUBCUT SCH (09:00)
--- NOTE | 2016-09-10 12:40 | DCSUMMARY ---
Hospitalization Summary Hospital Course: Final Discharge Diagnosis: Current Visit Problems Problem Status Priority Diagnosed Code Left knee pain Acute M25.562 Status post left knee replacement Acute Z96.652 Diagnostic Data, Laboratory Data, and Procedures of Signifigance: Laboratory Results 09/07/16 09/07/16 09/07/16 Range/Units 21:27 21:35 22:16 WBC 9.15 (4.8-10.8) 10^3/uL RBC 4.20 (4.20-5.40) 10^6/uL Hgb 12.3 (12.0-16.0) g/dL Hct 36.7 L (37.0-47.0) % MCV 87.4 (81-99) FL MCH 29.3 (27-31) PG MCHC 33.5 (33-37) g/dL RDW Std Deviation 42.5 (39-50) fL RDW Coeff of Jaime 13.6 (11.5-14.5) % Plt Count 232 (140-350) 10*3/uL MPV 8.7 (7.4-12.2) FL Immature Gran % (Auto) 0.2 (0-5) % Neut % (Auto) 69.7 (50-80) % Lymph % (Auto) 23.0 (10-50) % [place] % (Auto) 6.2 (5-15) % Eos % (Auto) 0.7 (0-8) % Baso % (Auto) 0.2 (0-1) % Immature Gran # (Auto) 0.02 10*3/UL Neut # (Auto) 6.38 10*3/UL Lymph # (Auto) 2.10 10*3/uL [place] # (Auto) 0.57 (0.3-0.8) 10*3/UL Eos # (Auto) 0.06 10*3/UL Baso # (Auto) 0.02 10*3/UL WBC Morphology Comment Normal morphology (NORM) Plt Morphology Comment Normal morphology (NORM) RBC Morph Comment Normal morphology (NORM) ESR 12 (0-20) MM/HR D-Dimer 1.29 H (0.00-0.59) mg/L Sodium 140 (135-145) meq/L Potassium 4.0 (3.8-5.2) meq/L Chloride 110 (98-112) meq/L Carbon Dioxide 18 L (23-33) meq/L Anion Gap 12 (5-20) BUN 20 (7-22) mg/dL Creatinine 1.3 H (0.50-1.20) mg/dL Estimated GFR Industrial Relations Director BUN/Creatinine Ratio 15.38 (6-20) Glucose 100 (78-110) mg/dL Calculated Osmolality 292.0 (267-292) mOsm/kg Uric Acid 6.2 (2.5-7.5) mg/dl Calcium 8.9 (8.7-10.7) mg/dL Total Bilirubin 0.4 (0.3-1.2) mg/dL AST 28 (8-39) IU/L ALT 30 (9-52) IU/L Alkaline Phosphatase 105 (38-126) IU/L C-Reactive Protein 0.8 (0.0-0.9) mg/dL Total Protein 6.6 (6.1-8.0) g/dL Albumin 4.1 (3.5-4.8) g/dL Globulin 2.5 (2.50-4.10) g/dL Albumin/Globulin Ratio 1.60 (1.3-2.0) mg/g Ur Collection Type Urine Color Urine Clarity (CLEAR) Urine pH (5.0-8.5) Ur Specific Fletcher (1.005-1.030) Urine Protein (NEG) mg/dl Urine Glucose (UA) (NEG) mg/dL Urine Ketones (NEG) Urine Occult Blood (NEG) Urine Nitrate (NEG) Urine Bilirubin (NEG) Urine Urobilinogen (0.2) mg/dL Ur Leukocyte Esterase (NEG) Urine RBC (NONE) /hpf Urine WBC (NONE) Ur Squamous Epith Cells (NONE) Ur Renal Epithelial Cell (NONE) Urine Crystals Urine Bacteria (NONE) Urine Casts Urine Mucus (NONE) Urine Trichomonas (NONE) Urine Yeast (NONE) 09/08/16 09/09/16 09/09/16 Range/Units 04:58 08:27 12:00 WBC 6.35 (4.8-10.8) 10^3/uL RBC 4.02 L (4.20-5.40) 10^6/uL Hgb 11.5 L (12.0-16.0) g/dL Hct 36.0 L (37.0-47.0) % MCV 89.6 (81-99) FL MCH 28.6 (27-31) PG MCHC 31.9 L (33-37) g/dL RDW Std Deviation 43.8 (39-50) fL RDW Coeff of Jaime 13.8 (11.5-14.5) % Plt Count 229 (140-350) 10*3/uL MPV 9.1 (7.4-12.2) FL Immature Gran % (Auto) 0.3 (0-5) % Neut % (Auto) 48.5 L (50-80) % Lymph % (Auto) 39.7 (10-50) % [place] % (Auto) 9.0 (5-15) % Eos % (Auto) 2.2 (0-8) % Baso % (Auto) 0.3 (0-1) % Immature Gran # (Auto) 0.02 10*3/UL Neut # (Auto) 3.08 10*3/UL Lymph # (Auto) 2.52 10*3/uL [place] # (Auto) 0.57 (0.3-0.8) 10*3/UL Eos # (Auto) 0.14 10*3/UL Baso # (Auto) 0.02 10*3/UL WBC Morphology Comment Normal morphology (NORM) Plt Morphology Comment Normal morphology (NORM) RBC Morph Comment Normal morphology (NORM) ESR (0-20) MM/HR D-Dimer (0.00-0.59) mg/L Sodium 141 141 (135-145) meq/L Potassium 4.3 3.8 (3.8-5.2) meq/L Chloride 108 110 (98-112) meq/L Carbon Dioxide 24 21 L (23-33) meq/L Anion Gap 9 10 (5-20) BUN 20 24 H (7-22) mg/dL Creatinine 1.4 H 1.1 (0.50-1.20) mg/dL Estimated GFR Industrial Relations Director BUN/Creatinine Ratio 14.28 21.81 H (6-20) Glucose 92 100 (78-110) mg/dL Calculated Osmolality 294.0 H 295.0 H (267-292) mOsm/kg Uric Acid (2.5-7.5) mg/dl Calcium 8.3 L 8.5 L (8.7-10.7) mg/dL Total Bilirubin 0.6 (0.3-1.2) mg/dL AST 21 (8-39) IU/L ALT 29 (9-52) IU/L Alkaline Phosphatase 67 (38-126) IU/L C-Reactive Protein (0.0-0.9) mg/dL Total Protein 6.0 L (6.1-8.0) g/dL Albumin 3.5 (3.5-4.8) g/dL Globulin 2.5 (2.50-4.10) g/dL Albumin/Globulin Ratio 1.40 (1.3-2.0) mg/g Ur Collection Type Clean catch urine Urine Color Yellow Urine Clarity Clear (CLEAR) Urine pH 7.0 (5.0-8.5) Ur Specific [place] 1.015 (1.005-1.030) Urine Protein Negative (NEG) mg/dl Urine Glucose (UA) Negative (NEG) mg/dL Urine Ketones Negative (NEG) Urine Occult Blood Negative (NEG) Urine Nitrate Negative (NEG) Urine Bilirubin Negative (NEG) Urine Urobilinogen 0.2 (0.2) mg/dL Ur Leukocyte Esterase Negative (NEG) Urine RBC 0-1 (NONE) /hpf Urine WBC 0-1 (NONE) Ur Squamous Epith Cells None (NONE) Ur Renal Epithelial Cell None (NONE) Urine Crystals None Urine Bacteria None (NONE) Urine Casts None Urine Mucus None (NONE) Urine Trichomonas None (NONE) Urine Yeast None (NONE) History and Physical pertinent to Admission: Course of Hospitalization: This very nice 71-year-old female who underwent left the knee surgery about a month ago comes in with his cruciate left knee pain patient was evaluated by Dr. Pryor orthopedic surgery with MRIs which found the loose bodies was taken to the OR these were extracted patient did great postop and then she is very happy and pain-free. Most likely patient will be discharged home this afternoon after she does her physical therapy and seen by Dr. Pryor again she will resume her usual medication and any further instructions regarding her knee will come from Dr. Pryor for pain control and anticoagulation On the date of discharge, the patient was examined: Gen.: [No acute distress, alert, nontoxic] Heart: [Regular rate and rhythm, no murmurs, clicks, gallops, or rubs] Lungs: [Clear to auscultation bilaterally, breathing is nonlabored] Abdomen/GI: [Normal tones on auscultation, soft, nontender, nondistended] Musculoskeletal/extremities: [No clubbing, cyanosis, or edema] Vitals reviewed and are listed below Vital Signs (24 hrs) Temp Pulse Pulse Pulse Resp BP BP 09/10/16 08:51 97.8 F 97 20 118/65 09/10/16 07:00 88 09/10/16 05:00 97.5 F 83 18 124/65 09/09/16 23:17 97.4 F 91 16 118/59 09/09/16 19:58 97.1 F 84 17 155/72 09/09/16 17:52 97.6 F 73 17 153/73 09/09/16 17:27 97.1 F 78 18 146/85 09/09/16 17:22 78 17 146/95 09/09/16 17:17 76 19 148/81 09/09/16 17:12 79 14 142/86 09/09/16 17:07 84 13 141/83 09/09/16 17:02 96.9 F 83 23 131/78 09/09/16 16:57 85 12 126/71 09/09/16 16:51 97.0 F 88 10 L 111/64 09/09/16 14:50 98.8 F 69 22 143/80 Pulse Ox 09/10/16 08:51 95 09/10/16 07:00 09/10/16 05:00 91 09/09/16 23:17 90 09/09/16 19:58 94 09/09/16 17:52 96 09/09/16 17:27 09/09/16 17:22 09/09/16 17:17 09/09/16 17:12 09/09/16 17:07 09/09/16 17:02 09/09/16 16:57 09/09/16 16:51 09/09/16 14:50 Assessment and Plan: 1. As per discharge assessments above 2. Disposition: Home if okay with Dr. Pryor 3. Condition on discharge, stable and improved. 4. Diet: regular diet 5. Activities: resume normal activities 6. Follow-Up: 1. [PCP] 2. 7. Medications at the Time of Discharge: Home Medications Medication Instructions Recorded Confirmed Type NK [No Home Medications Reported] 09/07/16 09/07/16 History 8. Time, care, counseling and coordination of care for this discharge is greater than 30 minutes. Exam - Vitals Vital Signs: Vital Signs Temperature 97.8 F Temperature Source Temporal Artery Scan Pulse Rate [Apical] 88 Pulse Rate [Pulse Oximeter] 97 Pulse Rate 78 Respiratory Rate 20 Blood Pressure [Left Arm] 118/65 Blood Pressure 146/85 Pulse Ox 95 Oxygen Flow Rate 2 Oxygen Flow Rate 3 Oxygen Delivery Method Room Air Height 5 ft 4 in Weight 72.847 kg Patient Problems - Patient Problem List (1) Left knee pain Current Visit: Yes Status: Acute
--- NOTE | 2016-09-10 13:56 | PT.PROG ---
Progress Note Progress Note: 09/10/2016 1:15-1:45 S: pt. reports her knee is feeling much better than when she came in. She also states her only pain is with the incisions and has no real pain in her knee. She states she believes she is functional and can go home PMH:Medical History: 1. At one point in time they thought that she had multiple sclerosis but she said she went to a different neurologist in [place] and they told her she does not have it. 2. Chronic dizziness. This was attributed to inner ear problem and that seemed to be improved Surgical History: 1. Hysterectomy. 2. Shoulder surgery. 3. Cholecystectomy O: pt. performed sit to stands without the use of hands or aid 10x, she then went up and down 30 stairs. She was able to ambulate for over 10 min without a complaint. she balanced with her eyes closed for 30 sec. and then on foam with feet together for 30 sec. she was able to safely and effectively maneuver through an obstacle course involving hurdles, boxes, and foam. A: pt. performed all activity well, she had little complaint of pain and no worry about returning home. She can safely and effectively maneuver through, stairs, obstacles, and changes in terrain. She has the function and endurance to return home. Problem list: 1. proximal hip strength (slight weakness noted with sit to stands and stairs) Short Term Goals: 1. balance for 30 sec. feet together 2. walk 200ft 3. go up and down 10 stairs [facility] goals 1. Increase proximal hip strength to show no knee pronation with sit to stands for 10 reps Treatment Plan: Pt will see physical therapy 2x per day during the week and 1x per day over the weekend. dependent on her length of stay. Initial treatment: see [facility]
== END 2016-09-10 13:54 | disposition home or self-care (01) | DRG 489 ==
LOC: ER 20:42 → MED/SURG 22:50 → OBSVTOIN 09-09 12:57 → OPS 09-09 14:43 → MED/SURG 09-09 17:32
PROVIDERS: ADMIT Internal Medicine; ATTEND Internal Medicine
PROC: 0SCD4ZZ Extirpation of Matter from Left Knee Joint, Percutaneous Endoscopic Approach (ICD-10-PCS; principal; 2016-09-09 14:30)
DX: M25.562 Pain in left knee (principal); M23.42 Loose body in knee, left knee; Z96.652 Presence of left artificial knee joint
CPT/HCPCS: 36415 ×3; 73562; 73721; 80048; 80053 ×2; 81001; 84550; 85025 ×2; 85379; 85652; 86140; 87641; 93971; 96374; 96375; 99284 ×2; J1650; J3010 ×3; 97161; 97530; J1100; J1885; J2001; J2250; J2405; J3490; J7030; J7120

== ENCOUNTER → 2016-09-27 | Outpatient (CLI) | payer OTHER, MEDICARE | LOC: MMPC 10:00 | PROVIDERS: ATTEND Orthopaedic Surgery | DX: M23.42 Loose body in knee, left knee (principal); Z96.652 Presence of left artificial knee joint ==